=== PATIENT | female | born 1940 | race Caucasian/White ===

== ENCOUNTER → 2016-03-05 | Outpatient (CLI) | payer BC ==
[~2016-03-05] MED LIST: DVN160125 PO; NAPR-201 PO
--- NOTE | 2016-03-05 12:25 | MAMMOGRAPHY REPORT ---
BILATERAL DIGITAL SCREENING MAMMOGRAM WITH CAD: 03/05/2016 TECHNIQUE: Current study was also evaluated with a Computer Aided Detection (CAD) system. Bilatera l CC and MLO views were obtained. COMPARISON: Comparison is made to exams dated: 02/28/2015 mammogram, 12/26/2013 mammogram, 12/11/2010 mammogram, 12/20/2012 mammogram, 12/15/2011 mammogram - [facility], and 07/30/2008. BREAST COMPOSITION: There are scattered areas of fibroglandular density in both breasts. FINDINGS: No suspicious masses, calcifications, or areas of architectural distortion are noted in e ither breast. There has been no significant interval change compared to prior exams. IMPRESSION: ACR BI-RADS CATEGORY 1: NEGATIVE There is no mammographic evidence of malignancy. A 1 year screening mammogram is recommended. The p atient will receive written notification of the results. Approximately 10% of breast cancers are not detected with mammography. A negative mammographic repor t should not delay biopsy if a clinically suggestive mass is present. Aruna He M.D. ah/:03/05/2016 08:32:17 Practice Assistant: Lashell KENDALL(Marlena)(M), [facility] letter sent: Normal 1/2 BI-RADS Code: ACR BI-RADS Category 1: Negative
== END | disposition home or self-care (01) ==
LOC: C.MAMM 07:58
PROVIDERS: ATTEND Family Medicine
DX: Z12.31 Encounter for screening mammogram for malignant neoplasm of breast (principal)

== ENCOUNTER → 2017-03-10 | Outpatient (CLI) | payer BC ==
--- NOTE | 2017-03-10 14:33 | MAMMOGRAPHY REPORT ---
BILATERAL DIGITAL SCREENING MAMMOGRAM TOMOSYNTHESIS WITH CAD: 03/10/2017 CLINICAL HISTORY: Routine screening. Patient has no complaints. TECHNIQUE: Breast tomosynthesis in addition to standard 2D mammography was performed. Current study was also evaluated with a Computer Aided Detection (CAD) system. COMPARISON: Comparison is made to exams dated: 03/05/2016 mammogram, 02/28/2015 mammogram, 12/26/2013 mammogram, 12/20/2012 mammogram, 12/15/2011 mammogram, and 12/11/2010 mammogram - [facility]. BREAST COMPOSITION: There are scattered areas of fibroglandular density in both breasts. FINDINGS: No suspicious masses, calcifications, or areas of architectural distortion are noted in ei ther breast. There has been no significant interval change compared to prior exams. IMPRESSION: ACR BI-RADS CATEGORY 1: NEGATIVE There is no mammographic evidence of malignancy. A 1 year screening mammogram is recommended. The pa tient will receive written notification of the results. Approximately 10% of breast cancers are not detected with mammography. A negative mammographic report should not delay biopsy if a clinically suggestive mass is present. Aruna He M.D. /:03/10/2017 08:05:39 Tank Cooper: Oralia Moy, [facility] letter sent: Normal /2 BI-RADS Code: ACR BI-RADS Category 1: Negative
== END | disposition home or self-care (01) ==
LOC: C.MAMM 07:45
PROVIDERS: ATTEND Family Medicine
DX: Z12.31 Encounter for screening mammogram for malignant neoplasm of breast (principal)

== ENCOUNTER → 2017-09-13 | Outpatient (CLI) | payer BC ==
[~2017-09-13] MED LIST changes: +NAPR1TAB9 PO; +VALS160T60 PO
--- NOTE | 2017-09-13 09:16 | DIAGNOSTIC IMAGING REPORT ---
PA CHEST WITH RIGHT-SIDED RIB SERIES CLINICAL HISTORY: Dyspnea. Right-sided chest wall pain. FINDINGS: A PA chest radiograph with 4 additional views may right-sided rib series is compared to study dated 07/29/2017. The heart is top normal for projection. There is atherosclerotic calcification of the thoracic aorta. The pulmonary vascular structures noncongested. Chronic interstitial thickening is similar to previous. The lungs and pleural spaces are clear. No pneumothorax is seen. The skeletal structures are osteopenic. There is no radiographic evidence of acute/distracted right-sided rib fracture on the rib series. The remainder of the bony thorax is grossly intact. Degenerative change is noted in the thoracic spine. IMPRESSION: 1. The lungs are clear. 2. There is no radiographic evidence of acute/distracted right-sided rib fracture on the rib series. Electronically signed by: Fan Pacheco M.D. 09/13/2017 9:15 AM Dictated Date/Time: 09/13/2017 9:12 AM
== END | disposition home or self-care (01) ==
LOC: C.RAD1850 08:58
PROVIDERS: ATTEND Family Medicine
DX: M54.89 Other dorsalgia (principal)

== ENCOUNTER 2017-09-18 16:55 | Inpatient (IN) | payer BC, OTHER ==
[~2017-09-18] VITALS: Ht 162.6 cm; Wt 64.0 kg
[~2017-09-18 16:55] MED LIST changes: -NAPR1TAB9 PO; -VALS160T60 PO
[2017-09-18] MEDS ORDERED: OPTIRAY 320 IV PRN (17:30)
[2017-09-18] MEDS ORDERED: VALS160T60 PO (17:38)
[2017-09-18] MEDS ORDERED: NAPR1TAB9 PO (17:38)
[2017-09-18 17:57] LABS: BASO % 0.3 %; BASO ABS # 0.02 K/uL (0-0.2); EOS % 1.3 %; EOS ABS # 0.08 K/uL (0-0.5); HEMATOCRIT 41.7 % (37-47); HEMOGLOBIN 15.1 g/dL (12.0-16.0); LYMPH ABS # 1.57 K/uL (1.2-3.4); MEAN CELL VOLUME 87.8 fL (80-100); MEAN CORPUSCULAR HEMOGLOBIN 31.8 pg (25-34); MEAN CORPUSCULAR HGB CONC 36.2 g/dl (32-36); MEAN PLATELET VOLUME 9.2 fL (7.4-10.4); MONO % 11.4 %; MONO ABS # 0.69 K/uL (0.11-0.59); NEUT ABS # 3.67 K/uL (1.4-6.5); PLATELET COUNT 279 K/uL (130-400); RED CELL DISTRIBUTION WIDTH CV 13.3 % (11.5-14.5); RED CELL DISTRIBUTION WIDTH SD 42.6 fL (36.4-46.3); WHITE BLOOD COUNT 6.03 K/uL (4.8-10.8)
[2017-09-18 18:05] LABS: PTT PATIENT 24.6 SECONDS (21.0-31.0)
[2017-09-18 18:25] LABS: ALBUMIN 4.3 gm/dl (3.4-5.0); ALKALINE PHOSPHATASE 81 U/L (45-117); ALT/SGPT 20 U/L (12-78); AST/SGOT 17 U/L (15-37); BLOOD UREA NITROGEN 19 mg/dl (7-18); CALCIUM 9.9 mg/dl (8.5-10.1); CARBON DIOXIDE 25 mmol/L (21-32); GLUCOSE 117 mg/dl (70-99); LIPASE 298 U/L (73-393); POTASSIUM 3.6 mmol/L (3.5-5.1); SODIUM 121 mmol/L (136-145); TOTAL PROTEIN 8.8 gm/dl (6.4-8.2)
--- NOTE | 2017-09-18 19:08 | EMERGENCY ROOM VISIT NOTE ---
History First contact with patient: 17:13 Chief Complaint: SHORTNESS OF BREATH Stated Complaint: SEVERE BACK PAIN, SHORTNESS OF BREATH, SHAKING, History of Present Illness 77 year old female with history of hypertension presents with complaint of upper thoracic back pain on the right side spreading diffusely and now around the entire chest ongoing for approximately 2 weeks. Worse with certain movements and lying down. Does feel somewhat short of breath with this. No cough or fevers reported. No significant trauma. Decreased appetite but denies abdominal pain or diarrhea. Denies urinary symptoms. Endorses weakness and being more tremulous/achy recently. Difficulty sleeping as it is worse laying down. Seen by her primary care physician several times initially thought was musculoskeletal but not improving. Chest x-ray reportedly was normal the outpatient setting. Had return from vacation secondary to this. No significant improvement with Aleve at home. Source of History: patient Onset: 2 weeks ago Position: chest, back (upper) Symptom Intensity: severe Quality: pressure Timing: constant Modifying Factors (Worsening): exertion, breathing Associated Symptoms: + chest pain, + SOB, + weakness, No fevers, No headache , No sorethroat, No neck pain, No vomiting, No abdominal pain, No diarrhea, No urinary symptoms Review of Systems See HPI for pertinent positives and negatives. A total of ten systems were reviewed and were otherwise negative. Social History Smoking Status: Never Smoker Alcohol Use: none Drug Use: none Current/Historical Medications Scheduled Valsartan/Hctz (Diovan Hct 160MG/25MG), 1 TAB PO DAILY Scheduled PRN Naproxen (Aleve), 220 MG PO BID PRN for Pain Physical Exam Vital Signs Date Time Temp Pulse Resp B/P (MAP) Pulse Ox O2 Delivery O2 Flow Rate FiO2 09/18/17 19:37 90 16 172/93 92 Room Air 09/18/17 18:59 88 20 178/97 100 Room Air 09/18/17 18:14 85 09/18/17 18:10 98 Room Air 09/18/17 18:10 98 Room Air 09/18/17 18:10 98 Room Air 09/18/17 18:08 89 168/93 98 Room Air 09/18/17 17:00 36.7 79 19 149/87 97 Room Air Physical Exam GENERAL: Awake, alert, with resting bilateral hand tremor. HENT: Normocephalic, atraumatic. Oropharynx unremarkable. EYES: Normal conjunctiva. Sclera non-icteric. NECK: Supple. No nuchal rigidity. RESPIRATORY: Clear to auscultation. No wheezes. Normal respiratory effort. CARDIAC: Normal rate. Normal rhythm. Extremities warm and well perfused. GI: Soft, non-distended. No tenderness to palpation. No rebound or guarding. No masses. RECTAL: Deferred. MUSCULOSKELETAL: Atraumatic. Chest examination reveals mild diffuse tenderness. There is no CVA tenderness to palpation. LOWER EXTREMITIES: Calves are equal size bilaterally and non-tender. No edema NEURO: Normal sensorium. No sensory or motor deficits noted. No facial droop. SKIN: Warm and dry. No rash or jaundice noted. Medical Decision & Procedures Laboratory Results 09/18/17 17:40 Red Blood Count 4.75, Mean Corpuscular Volume 87.8, Mean Corpuscular Hemoglobin 31.8, Mean Corpuscular Hemoglobin Concent 36.2, Mean Platelet Volume 9.2, Neutrophils (%) (Auto) 61.0, Lymphocytes (%) (Auto) 26.0, Monocytes (%) (Auto) 11.4, Eosinophils (%) (Auto) 1.3, Basophils (%) (Auto) 0.3, Neutrophils # (Auto ) 3.67, Lymphocytes # (Auto) 1.57, Monocytes # (Auto) 0.69, Eosinophils # (Auto ) 0.08, Basophils # (Auto) 0.02 09/18/17 17:40 Test 09/18/17 17:40 09/18/17 19:39 White Blood Count 6.03 K/uL (4.8-10.8) Red Blood Count 4.75 M/uL (4.2-5.4) Hemoglobin 15.1 g/dL (12.0-16.0) Hematocrit 41.7 % (37-47) Mean Corpuscular Volume 87.8 fL (80-100) Mean Corpuscular Hemoglobin 31.8 pg (25-34) Mean Corpuscular Hemoglobin Concent 36.2 g/dl (32-36) Platelet Count 279 K/uL (130-400) Mean Platelet Volume 9.2 fL (7.4-10.4) Neutrophils (%) (Auto) 61.0 % Lymphocytes (%) (Auto) 26.0 % Monocytes (%) (Auto) 11.4 % Eosinophils (%) (Auto) 1.3 % Basophils (%) (Auto) 0.3 % Neutrophils # (Auto) 3.67 K/uL (1.4-6.5) Lymphocytes # (Auto) 1.57 K/uL (1.2-3.4) Monocytes # (Auto) 0.69 K/uL (0.11-0.59) Eosinophils # (Auto) 0.08 K/uL (0-0.5) Basophils # (Auto) 0.02 K/uL (0-0.2) RDW Standard Deviation 42.6 fL (36.4-46.3) RDW Coefficient of Variation 13.3 % (11.5-14.5) Immature Granulocyte % (Auto) 0.0 % Immature Granulocyte # (Auto) 0.00 K/uL (0.00-0.02) Prothrombin Time 10.1 SECONDS (9.0-12.0) Prothromb Time International Ratio 1.0 (0.9-1.1) Activated Partial Thromboplast Time 24.6 SECONDS (21.0-31.0) Partial Thromboplastin Ratio 0.9 Anion Gap 9.0 mmol/L (3-11) Est Creatinine Clear Calc Drug Dose 51.9 ml/min Estimated GFR () 72.5 Estimated GFR (Non- 62.5 BUN/Creatinine Ratio 20.7 (10-20) Osmolality 261 mOsm/kg (280-300) Calcium Level 9.9 mg/dl (8.5-10.1) Total Bilirubin 0.9 mg/dl (0.2-1) Direct Bilirubin 0.2 mg/dl (0-0.2) Aspartate Amino Transf (AST/SGOT) 17 U/L (15-37) Alanine Aminotransferase (ALT/SGPT) 20 U/L (12-78) Alkaline Phosphatase 81 U/L (45-117) Troponin I < 0.015 ng/ml (0-0.045) Pro-B-Type Natriuretic Peptide 294 pg/ml (0-900) Total Protein 8.8 gm/dl (6.4-8.2) Albumin 4.3 gm/dl (3.4-5.0) Lipase 298 U/L (73-393) Thyroid Stimulating Hormone (TSH) 1.700 uIu/ml (0.300-4.500) Urine Color YELLOW Urine Appearance CLEAR (CLEAR) Urine pH 7.5 (4.5-7.5) Urine Specific [place] 1.020 (1.000-1.030) Urine Protein NEG (NEG) Urine Glucose (UA) NEG (NEG) Urine Ketones NEG (NEG) Urine Occult Blood NEG (NEG) Urine Nitrite NEG (NEG) Urine Bilirubin NEG (NEG) Urine Urobilinogen NEG (NEG) Urine Leukocyte Esterase NEG (NEG) Urine Random Sodium 42 mEq/L Medications Administered Medications (Trade) Dose Ordered Sig/Rosa Route Start Time Stop Time Status Last Admin Dose Admin Morphine Sulfate (MoRPHine SULFATE INJ) 4 mg NOW STAT IV 09/18/17 19:51 09/18/17 19:52 DC 09/18/17 20:16 4 MG ECG Per My Interpretation Indication: chest pain Rate (beats per minute): 85 Rhythm: normal sinus Findings: no acute ischemic change, other (Lead III t wave inversion. Normal intervals) Comparison ECG Date: 02/21/2011 Change: no significant change ED Course 1727: The patient was evaluated in room C1B. A complete history and physical exam was performed. 1844: Updated on Labs and sodium level awaiting CTA chest. 1946: Patient and son updated on Ct findings and ?mass. Given pain medicine and water. Hospitalist paged for admission. Medical Decision Differential diagnosis: Etiologies such as cardiac ischemia, aortic dissection, pulmonary embolism, pneumonia, pneumothorax, musculoskeletal, infections, pericarditis, myocarditis , esophageal rupture, gastrointestinal, as well as others were entertained. Presentation concerning for possible PE or dissection or possible mass given chronicity. Less likely cardiac but EKG and troponin were completed. CT of the chest was completed to evaluate for these other possibilities. Basic lab work was completed. Not having fever and no overlying rash I doubt this is acute infection. Doubt pneumonia. No evidence of zoster as is present on both sides of the body. Lungs sound clear no history of reactive airway disease. Negative troponin. Blood counts are stable. Significant hyponatremia likely contributing to her symptoms particularly her mental fogginess. Hyponatremia could be secondary to her BP medicine. CT scan of the chest show no acute pulmonary embolism or mass in the lungs. CT did suboptimally visualize a 1 cm mass in the lateral segment of the liver. This could possibly be causing the patient's pain in a daily dedicated nonemergent liver protocol CT of the abdomen pelvis would be beneficial to further differentiate. Patient and son aware of finding. No evidence of live dysfunction at this time. No evidence of large aortic dissection. Given hyponatremia requires admission for this. Will require further evaluation for intra-abdominal process causing her symptoms and possible oncological process that could be contributing to her hyponatremia versus BP medication related. Hospitalist contacted for admission. Medication Reconcilliation Current Medication List: was personally reviewed by me Blood Pressure Screening Patient's blood pressure: Elevated blood pressure Blood pressure disposition: Referred to PCP Impression Primary Impression: Hyponatremia Additional Impressions: Liver mass, left lobe Chest pain Departure Information Dispostion Being Evaluated By Hospitalist Condition GOOD Referrals Josh Pollard MD (PCP) Patient Instructions My [facility] Problem Qualifiers Additional Impressions: Chest pain Chest pain type: unspecified Qualified Codes: R07.9 - Chest pain, unspecified
--- NOTE | 2017-09-18 19:36 | DIAGNOSTIC IMAGING REPORT ---
CT ANGIOGRAPHY OF THE CHEST, PULMONARY EMBOLUS PROTOCOL CLINICAL HISTORY: Shortness of breath. COMPARISON STUDY: Chest radiograph September 23, 2017. TECHNIQUE: Following IV administration of 89 mL of [id number]-320, helical axial images of the chest were obtained utilizing the pulmonary embolus protocol. Maximal intensity projections and sagittal and coronal reformats were viewed on an independent 3D workstation. IV contrast was administered without complication. A dose lowering technique was utilized adhering to the principles of ALARA. CT DOSE: 219.97 mGy.cm FINDINGS: No pulmonary emboli are identified. There is no evidence for thoracic aortic dissection. The size of the heart is normal. There is no pericardial effusion. No enlarged thoracic lymph nodes are present. There is no consolidation to suggest pneumonia. Central airways are patent. Linear and groundglass opacities reflect atelectasis. Visualized portions of the upper abdomen demonstrate a probable 4.1 cm hypodense lateral segment hepatic lesion. IMPRESSION: 1. No pulmonary emboli identified. 2. No acute intrathoracic findings. 3. Probable 4.1 cm hypodense lateral segment hepatic mass which is suboptimally assessed on this exam. Nonemergent liver protocol CT of the abdomen and pelvis is recommended. Electronically signed by: Aaron Olsen M.D. 09/18/2017 7:35 PM Dictated Date/Time: 09/18/2017 7:23 PM
[2017-09-18] MEDS ORDERED: MoRPHine SULFATE 4 MG/ML 1 ML CARP\\VIAL IV STA (19:51)
[2017-09-18] MEDS ORDERED: LIDODERM (LIDOCAINE) PATCH 5% TD STA (21:45)
--- NOTE | 2017-09-18 22:01 | History and Physical ---
History & Physical Date & Time of Service: Sep 18, 2017 at 21:29 Chief Complaint: Severe Back Pain, Shortness Of Breath, Shaking, Primary Care Physician: Josh Pollard MD History of Present Illness Source: patient, family, hospital records The patient is a 77-year-old female with past medical history of hypertension that presents with a two-week history of worsening back pain. The patient was initially evaluated as an outpatient at [facility] medicine clinic 2 weeks ago and found to have a right sided muscle strain. The patient was initially given a trigger point injection that provided immediate relief, but returned within 24 hours. Afterwards the patient was placed on naproxen 500 mg twice daily although this also provided no further relief. The pain continued to progress and wrap around her chest causing a burning-like sensation. The reason the patient came into the hospital today is because she has been unable to sleep, has been having decreased appetite, and has felt very weak over the last few days. She also states that she has not been drinking an adequate amount of fluid due to her fatigue. Her son at bedside states that she is normally very active although has been limited due to her pain. In the emergency department the patient was also found to be hyponatremic with a sodium of 121. She takes a combo valsartan and hydrochlorothiazide medication and appreciates that she has had a very low fluid intake over the last few days. CTA chest performed in the emergency department also revealed a 4 cm liver mass. Family History Noncontributory Social History Smoking Status: Never Smoker Smokeless Tobacco Use: No Alcohol Use: none Drug Use: none Occupational Status: retired Immunizations History of Influenza Vaccine: Unknown History of Tetanus Vaccine?: Unknown History of Pneumococcal: Unknown History of Hepatitis B Vaccine: Unknown Allergies Coded Allergies: Ibuprofen (Verified Allergy, Unknown, RASH, 02/21/11) Home Medications Scheduled Valsartan/Hctz (Diovan Hct 160MG/25MG), 1 TAB PO DAILY Scheduled PRN Naproxen (Aleve), 220 MG PO BID PRN for Pain Review of Systems Constitutional: + weakness, + fatigue, No fever, No chills, No sweats, No weight loss Respiratory: No cough, No shortness of breath Cardiovascular: + chest pain, No orthopnea, No palpitations Abdomen: No pain, No nausea, No vomiting, No diarrhea, No constipation, No GI bleeding Musculoskeletal: + muscle pain (Right sided back pain), No joint pain, No swelling, No calf pain Neurologic: No paralysis, No numbness/tingling Physical Exam Vital Signs Date Time Temp Pulse Resp B/P (MAP) Pulse Ox O2 Delivery O2 Flow Rate FiO2 09/18/17 21:02 94 26 119/74 97 Room Air 09/18/17 20:30 96 28 130/79 93 Room Air 09/18/17 20:00 92 25 159/92 98 Room Air 09/18/17 19:37 90 16 172/93 92 Room Air 09/18/17 18:59 88 20 178/97 100 Room Air 09/18/17 18:14 85 09/18/17 18:10 98 Room Air 09/18/17 18:10 98 Room Air 09/18/17 18:10 98 Room Air 09/18/17 18:08 89 168/93 98 Room Air 09/18/17 17:00 36.7 79 19 149/87 97 Room Air General Appearance: WD/WN, no apparent distress Head: normocephalic, atraumatic Eyes: normal inspection, sclerae normal Neck: supple, no carotid bruits Respiratory/Chest: chest non-tender, lungs clear, normal breath sounds Cardiovascular: regular rate, rhythm, no edema, no gallop Abdomen/GI: normal bowel sounds, non tender, soft Extremities/Musculoskelatal: normal inspection, no calf tenderness, no pedal edema, + pertinent finding (TTP over right trapezoid/ infrascapular region. Strength in UE 5/5. No visible sensory deficit. Mild tenderness with palpation over the anterior chest wall, athough this is diffuse with no acute point tenderness) Neurologic/Psych: no motor/sensory deficits, alert, oriented x 3 Diagnostics Laboratory Results Results Past 24 Hours Test 09/18/17 17:40 09/18/17 19:39 Range/Units White Blood Count 6.03 4.8-10.8 K/uL Red Blood Count 4.75 4.2-5.4 M/uL Hemoglobin 15.1 12.0-16.0 g/dL Hematocrit 41.7 37-47 % Mean Corpuscular Volume 87.8 80-100 fL Mean Corpuscular Hemoglobin 31.8 25-34 pg Mean Corpuscular Hemoglobin Concent 36.2 32-36 g/dl Platelet Count 279 130-400 K/uL Mean Platelet Volume 9.2 7.4-10.4 fL Neutrophils (%) (Auto) 61.0 % Lymphocytes (%) (Auto) 26.0 % Monocytes (%) (Auto) 11.4 % Eosinophils (%) (Auto) 1.3 % Basophils (%) (Auto) 0.3 % Neutrophils # (Auto) 3.67 1.4-6.5 K/uL Lymphocytes # (Auto) 1.57 1.2-3.4 K/uL Monocytes # (Auto) 0.69 0.11-0.59 K/uL Eosinophils # (Auto) 0.08 0-0.5 K/uL Basophils # (Auto) 0.02 0-0.2 K/uL RDW Standard Deviation 42.6 36.4-46.3 fL RDW Coefficient of Variation 13.3 11.5-14.5 % Immature Granulocyte % (Auto) 0.0 % Immature Granulocyte # (Auto) 0.00 0.00-0.02 K/uL Prothrombin Time 10.1 9.0-12.0 SECONDS Prothromb Time International Ratio 1.0 0.9-1.1 Activated Partial Thromboplast Time 24.6 21.0-31.0 SECONDS Partial Thromboplastin Ratio 0.9 Sodium Level 121 136-145 mmol/L Potassium Level 3.6 3.5-5.1 mmol/L Chloride Level 87 98-107 mmol/L Carbon Dioxide Level 25 21-32 mmol/L Anion Gap 9.0 3-11 mmol/L Blood Urea Nitrogen 19 7-18 mg/dl Creatinine 0.90 0.60-1.20 mg/dl Est Creatinine Clear Calc Drug Dose 51.9 ml/min Estimated GFR () 72.5 Estimated GFR (Non- 62.5 BUN/Creatinine Ratio 20.7 10-20 Random Glucose 117 70-99 mg/dl Osmolality 261 280-300 mOsm/kg Calcium Level 9.9 8.5-10.1 mg/dl Total Bilirubin 0.9 0.2-1 mg/dl Direct Bilirubin 0.2 0-0.2 mg/dl Aspartate Amino Transf (AST/SGOT) 17 15-37 U/L Alanine Aminotransferase (ALT/SGPT) 20 12-78 U/L Alkaline Phosphatase 81 45-117 U/L Troponin I < 0.015 0-0.045 ng/ml Pro-B-Type Natriuretic Peptide 294 0-900 pg/ml Total Protein 8.8 6.4-8.2 gm/dl Albumin 4.3 3.4-5.0 gm/dl Lipase 298 73-393 U/L Thyroid Stimulating Hormone (TSH) 1.700 0.300-4.500 uIu/ml Urine Color YELLOW Urine Appearance CLEAR CLEAR Urine pH 7.5 4.5-7.5 Urine Specific [place] 1.020 1.000-1.030 Urine Protein NEG NEG Urine Glucose (UA) NEG NEG Urine Ketones NEG NEG Urine Occult Blood NEG NEG Urine Nitrite NEG NEG Urine Bilirubin NEG NEG Urine Urobilinogen NEG NEG Urine Leukocyte Esterase NEG NEG Urine Random Sodium 42 mEq/L Impression Assessment and Plan The patient is a 77-year-old female with past medical history of hypertension that presents with a two-week history of worsening back pain. Patient subsequently found to have Hyponatremia with Sodium of 121 along with uncontrolled pain (chest/back) and therefore agreed to admit patient. Additional incidental finding of liver mass on imaging. Hyponatremia - Sodium of 121 on BMP - Holding home HCTZ/ Valsartan - Serum Osm 261, Urine Osm Ordered - IV NSS @ 100 mls/hr - AHA Diet - Repeat BMP in AM Back Strain/ Chest Pain - Lidocaine Patch - IV Toradol for breakthrough pain - Troponin < 0.015 - CTA Chest show no acute cardiopulmonary findings Liver Mass - CTA Chest: 4cm Liver Mass - MRI Abdomen with contrast ordered Hypertension - Holding home Valsartan/ HCTZ - Cardizem 30mg PO q6h DVT - SCDs Code Status - Full Resuscitation Attending addendum: I have physically seen this patient, have supervised the medical residents activities, and agree with the H&P unless as otherwise noted. Assessment and Plan: Hyponatremia-- Sodium 131, serum [place] 261, urinalysis and pending. Hold HCTZ/valsartan. NSS at 100 mils per hour. Repeat laboratories in a.m. Hypertension-- Hold HCTZ/valsartan as noted above. Start Cardizem 30 mg p.o. every 6 hours, with conversion to Cardizem CD in a.m. She can discuss further with her PCP maintenance medication of their choice. Liver mass 4.1 cm lateral segment-- Unable to do CT with contrast to the previous contrast already given. Order MRI abdomen with contrast. Further medications and orders as noted above. Advanced Directives Existing Advance Directive: No Existing Living Will: No Existing Power of Hydraulic Rockbreaker Operator: No Resuscitation Status Full Resuscitation VTE Prophylaxis Will order VTE Prophylaxis: Yes Social Service Consult None Apply Resident Tracking Resident Involvement: Resident Care Provided Care Provided: Adult Hospital Medicine
[2017-09-19] VITALS (9 sets, daily range): BP systolic 129–186; BP diastolic 73–98; PULSE 85–98; TEMP 36.3–37.2; O2SAT 95–99; Ht 162.6 cm; Wt 64.0 kg
[2017-09-19] MEDS: SODIUM CHLORIDE 0.9% 1000ML 1,000 ML IV SCH ×3 (01:35→21:10)
[2017-09-19] MEDS: KETOROLAC TROMETHAMINE 15 MG/ML VIAL IV PRN ×2 (03:23→17:06)
[2017-09-19] MEDS ORDERED: PNEUMOCOCCAL ADMINISTRATION CHARGE ONE (03:30)
[2017-09-19] MEDS ORDERED: PNEUMOCOCCAL POLYSACCHARIDES 25 MCG/0.5 ML VIAL/SYR IM. ONE (03:30)
[2017-09-19] MEDS: DILTIAZEM HCL 30 MG TAB PO SCH ×4 (05:52→17:12)
[2017-09-19] MEDS: ACETAMINOPHEN 325 MG TAB PO PRN (05:59)
[2017-09-19] MEDS: ONDANSETRON INJ 2 MG/ML 2 ML VIAL IV PRN ×2 (06:24→21:41)
[2017-09-19] MEDS: HydrALAZINE HCL 20 MG/ML VIAL IV. PRN (06:25)
--- NOTE | 2017-09-19 07:06 | Family Medicine Progress Note ---
Progress Note Date of Service Sep 19, 2017. Subjective Pt evaluation today including: conversation w/ patient, physical exam, chart review, review of inpatient medication list Pain: 9/10 back pain reported PO Intake: Poor PO intake Voiding: no voiding problems Ms. Gomez reports she remains with severe back pain that radiates around to the front of her abdomen. She states the pain is constant and does not improve with change in position. She reports that the morphine did help slightly however she is reluctant to take narcotics. She denies any history of falls or trauma to the area, but believes this may have started when she carlee her arm back forcefully to start her lawnmower. She also notes a poor appetite over the past 2 weeks due to the pain and states that she has lost 12 pounds over the last 2 weeks. She also notes she has not had a bowel movement in 10 days. Constitutional: + weight loss, No fever, No chills Respiratory: No cough, No shortness of breath Cardiovascular: No chest pain Abdomen: + pain, + constipation, No nausea, No vomiting Musculoskeletal: + problem reported (upper back pain) All Other Systems: Reviewed and Negative Medications Current Inpatient Medications Medications (Trade) Dose Ordered Sig/Rosa Route Start Time Stop Time Status Last Admin Dose Admin Ioversol (Optiray 320) 100 ml UD PRN IV 09/18/17 17:30 09/22/17 17:29 Sodium Chloride 1,000 ml @ 100 mls/hr Q10H IV 09/18/17 23:59 10/18/17 23:58 09/19/17 09:28 100 MLS/HR Acetaminophen (Tylenol Tab) 650 mg Q4H PRN PO 09/18/17 21:45 10/18/17 21:44 09/19/17 05:59 650 MG Ondansetron HCl (Zofran Inj) 4 mg Q6H PRN IV 09/18/17 21:45 10/18/17 21:44 09/19/17 06:24 4 MG Diltiazem HCl (Cardizem Tab) 30 mg Q6H PO 09/19/17 00:00 10/19/17 00:00 09/19/17 11:34 30 MG Ketorolac Tromethamine (Toradol Inj) 15 mg Q6H PRN IV 09/18/17 21:45 09/23/17 21:44 09/19/17 03:23 15 MG Lidocaine (Lidoderm Patch 5%) 1 patch QAM TD 09/19/17 09:00 10/19/17 08:59 09/19/17 09:27 1 PATCH Miscellaneous (Remove Lidoderm Patch) 1 ea DAILY@21 N/A 09/19/17 21:00 10/19/17 20:59 Hydralazine HCl (HydrALAZINE INJ) 10 mg Q6H PRN IV. 09/19/17 06:15 10/19/17 06:14 09/19/17 06:25 10 MG Docusate Sodium (coLACE CAP) 100 mg BID PO 09/19/17 21:00 10/19/17 20:59 Objective Vital Signs Date Time Temp Pulse Resp B/P (MAP) Pulse Ox O2 Delivery O2 Flow Rate FiO2 09/19/17 11:31 36.4 98 18 129/73 (91) 99 09/19/17 08:00 98 Room Air 09/19/17 07:23 36.3 96 20 144/79 (100) 97 Room Air 09/19/17 06:04 36.8 85 20 186/98 (127) 99 Room Air 09/19/17 00:20 37.2 86 18 135/85 97 Room Air 09/18/17 23:09 87 130/80 97 09/18/17 22:57 85 24 09/18/17 22:00 90 21 106/74 97 Room Air 09/18/17 21:02 94 26 119/74 97 Room Air 09/18/17 20:30 96 28 130/79 93 Room Air 09/18/17 20:00 92 25 159/92 98 Room Air 09/18/17 19:37 90 16 172/93 92 Room Air 09/18/17 18:59 88 20 178/97 100 Room Air 09/18/17 18:14 85 09/18/17 18:10 98 Room Air 09/18/17 18:10 98 Room Air 09/18/17 18:10 98 Room Air 09/18/17 18:08 89 168/93 98 Room Air 09/18/17 17:00 36.7 79 19 149/87 97 Room Air Physical Exam General Appearance: WD/WN, + mild distress (appears uncomfortable) Respiratory/Chest: lungs clear, normal breath sounds, no respiratory distress, no accessory muscle use Cardiovascular: regular rate, rhythm, no edema, no gallop, no JVD, no murmur Abdomen: soft, + tenderness (mildly tender, no guarding or rigidity), + pertinent finding (point tenderness over thoracic vertebrae. No tenderness along scapula) Extremities: no pedal edema, no calf tenderness Neurologic/Psychiatric: alert, normal mood/affect, oriented x 3 Laboratory Results Last 24 Hours Test 09/18/17 17:40 09/18/17 19:39 09/19/17 05:43 White Blood Count 6.03 K/uL Red Blood Count 4.75 M/uL Hemoglobin 15.1 g/dL Hematocrit 41.7 % Mean Corpuscular Volume 87.8 fL Mean Corpuscular Hemoglobin 31.8 pg Mean Corpuscular Hemoglobin Concent 36.2 g/dl Platelet Count 279 K/uL Mean Platelet Volume 9.2 fL Neutrophils (%) (Auto) 61.0 % Lymphocytes (%) (Auto) 26.0 % Monocytes (%) (Auto) 11.4 % Eosinophils (%) (Auto) 1.3 % Basophils (%) (Auto) 0.3 % Neutrophils # (Auto) 3.67 K/uL Lymphocytes # (Auto) 1.57 K/uL Monocytes # (Auto) 0.69 K/uL Eosinophils # (Auto) 0.08 K/uL Basophils # (Auto) 0.02 K/uL RDW Standard Deviation 42.6 fL RDW Coefficient of Variation 13.3 % Immature Granulocyte % (Auto) 0.0 % Immature Granulocyte # (Auto) 0.00 K/uL Prothrombin Time 10.1 SECONDS Prothromb Time International Ratio 1.0 Activated Partial Thromboplast Time 24.6 SECONDS Partial Thromboplastin Ratio 0.9 Sodium Level 121 mmol/L 125 mmol/L Potassium Level 3.6 mmol/L 3.7 mmol/L Chloride Level 87 mmol/L 90 mmol/L Carbon Dioxide Level 25 mmol/L 26 mmol/L Anion Gap 9.0 mmol/L 9.0 mmol/L Blood Urea Nitrogen 19 mg/dl 15 mg/dl Creatinine 0.90 mg/dl 0.81 mg/dl Est Creatinine Clear Calc Drug Dose 51.9 ml/min 56.6 ml/min Estimated GFR () 72.5 82.3 Estimated GFR (Non- 62.5 71.0 BUN/Creatinine Ratio 20.7 18.5 Random Glucose 117 mg/dl 107 mg/dl Osmolality 261 mOsm/kg Calcium Level 9.9 mg/dl 9.6 mg/dl Total Bilirubin 0.9 mg/dl Direct Bilirubin 0.2 mg/dl Aspartate Amino Transf (AST/SGOT) 17 U/L Alanine Aminotransferase (ALT/SGPT) 20 U/L Alkaline Phosphatase 81 U/L Troponin I < 0.015 ng/ml Pro-B-Type Natriuretic Peptide 294 pg/ml Total Protein 8.8 gm/dl Albumin 4.3 gm/dl Lipase 298 U/L Thyroid Stimulating Hormone (TSH) 1.700 uIu/ml Urine Color YELLOW Urine Appearance CLEAR Urine pH 7.5 Urine Specific [place] 1.020 Urine Protein NEG Urine Glucose (UA) NEG Urine Ketones NEG Urine Occult Blood NEG Urine Nitrite NEG Urine Bilirubin NEG Urine Urobilinogen NEG Urine Leukocyte Esterase NEG Urine Random Sodium 42 mEq/L Assessment and Plan Ms. Gomez is a 77-year-old female with past medical history of hypertension that presents with a two-week history of worsening back pain. Patient subsequently found to have hyponatremia with a sodium of 121 along with uncontrolled back pain. Additional incidental finding of liver mass on imaging. Hyponatremia - Sodium of 121 on admission, improved to 125 today - likely due to poor PO intake over the past 2 weeks - Holding home HCTZ/ Valsartan until sodium improves - Serum Osm 261, Awaiting Urine Osm - continue IV NSS @ 100 mls/hr - Follow BMP Back Pain - point tenderness is concerning for a compression fracture, however thoracic x- ray was negative for compression fracture or subluxation - x-ray did note degenerative changes in her thoracic spine as well as vacuum discs which could be contributing to her pain - Lidocaine Patch and IV toradol ordered - pt reported this was not controlling her pain adequately -> trial of 25mg of Tramadol yielded good response. Will continue this on a q4h prn basis - Troponin < 0.015 - CTA Chest show no acute cardiopulmonary findings Constipation - colace 100mg BID started - likely secondary to poor PO intake Liver Mass - MRI abdomen revealed a benign hemangioma -> discussed w/patient Hypertension - Holding home Valsartan/ HCTZ - Cardizem 30mg PO q6h and 10mg hydralazine q6h prn DVT - SCDs, start lovenox 40mg SQ QPM Code Status - Full Resuscitation Disposition - pending improvement in sodium levels & pain control Resident Physician Supervision Note: I was present with the resident during the history and exam. I discussed the case with the resident and agree with the findings and plan as documented in the note. Any exceptions or clarifications are listed here: Upon my exam, point tenderness midline in the mid to low thoracic region. Agree with thoracic XR to R/O compression fracture. Suspect hyponatremia secondary to decrease PO intake secondary to pain. Continue hydration and pain control. Trend BMP. Documented By: Thomas Acosta Resident Tracking Resident Involvement: Resident Care Provided Care Provided: Adult Hospital Medicine
[2017-09-19 07:07] LABS: CALCIUM 9.6 mg/dl (8.5-10.1); CREATININE 0.81 mg/dl (0.60-1.20); POTASSIUM 3.7 mmol/L (3.5-5.1)
--- NOTE | 2017-09-19 08:18 | DIAGNOSTIC IMAGING REPORT ---
MRI OF THE ABDOMEN COMBO CLINICAL HISTORY: Follow-up liver mass.. COMPARISON STUDY: Chest CT dated 09/18/2017. TECHNIQUE: MRI of the abdomen is performed transverse T1 and T2-weighted sequences in the axial and coronal planes. Contrast enhanced sequences were acquired following the IV administration of 10 cc of Eovist. Diffusion-weighted imaging and subtraction imaging were performed. High resolution coronal MRCP imaging was performed. 3-D reformats were created and assessed. FINDINGS: Lower chest: No pleural effusion is identified. The heart is normal in size. Liver: The liver is normal in size, contour, and signal intensity. No intrahepatic biliary ductal dilatation is seen. The hepatic veins and portal veins are patent. There is a 2.4 x 3.6 cm T2 hyperintense lesion identified in the left hepatic lobe. This demonstrates foci of peripheral discontinuous nodular enhancement with gradual delayed fill-in. This does not retain Eovist on the extended delays and is consistent with a benign hemangioma. A 9 mm cyst is present in hepatic segment VIII. Gallbladder/MRCP: The gallbladder is normal in appearance. No gallstones are identified. There is no intra or extrahepatic biliary ductal dilatation. The common bile duct measures up to 4 mm. There are no filling defects to indicate choledocholithiasis. The pancreatic duct is normal in caliber. Spleen: Normal in size and signal intensity. Pancreas: Unremarkable. Adrenal glands: Unremarkable. Kidneys: The kidneys are normal in size and without hydronephrosis. The kidneys enhance and excrete symmetrically. Abdominal aorta: Normal in course and caliber. Bowel: Visualized portions of the small bowel and colon show no evidence of obstruction. Peritoneum: There is no abdominal ascites. Lymphadenopathy: None. Skeletal structures: Visualized skeletal structures times are normal marrow signal intensity. IMPRESSION: 1. The 3.6 cm lesion in the left hepatic lobe is consistent with a benign hemangioma. 2. An additional 9 mm cyst is noted in the right lobe. 3. Unremarkable MRCP. No gallstones are identified. Electronically signed by: Fan Pacheco M.D. 09/19/2017 8:17 AM Dictated Date/Time: 09/19/2017 8:08 AM
[2017-09-19] MEDS: LIDODERM (LIDOCAINE) PATCH 5% TD SCH (09:27)
[2017-09-19] MEDS ORDERED: TRAMADOL HCL 50 MG TAB PO STA (11:22)
--- NOTE | 2017-09-19 13:57 | DIAGNOSTIC IMAGING REPORT ---
THORACIC SPINE 3 VIEWS ROUTINE HISTORY: Trauma. Pain. r/o compression fracture COMPARISON: None. FINDINGS: There is no fracture. No subluxation. Considerable degenerative disc change throughout. Vacuum disc are identified throughout the mid to lower thoracic region. No evidence for compression deformity. No evidence for subluxation. IMPRESSION: Degenerative change. No acute process. The above report was generated using voice recognition software. It may contain grammatical, syntax or spelling errors. Electronically signed by: He Leigh M.D. 09/19/2017 1:56 PM Dictated Date/Time: 09/19/2017 1:55 PM
[2017-09-19] MEDS: ENOXAPARIN 40 MG/0.4 ML SYR SQ SCH (21:07)
[2017-09-19] MEDS: DOCUSATE SODIUM 100 MG CAP PO SCH (21:09)
[2017-09-19] MEDS: TRAMADOL HCL 50 MG TAB PO PRN (21:13)
[2017-09-19] MEDS: MAGNESIUM HYDROXIDE SUSP 30 ML UDC PO PRN (21:41)
[2017-09-20] VITALS (9 sets, daily range): BP systolic 123–186; BP diastolic 68–101; PULSE 63–97; TEMP 36.4–37; O2SAT 95–98
[2017-09-20] MEDS: DILTIAZEM HCL 30 MG TAB PO SCH ×2 (00:38→06:21)
[2017-09-20] MEDS: HydrALAZINE HCL 20 MG/ML VIAL IV. PRN (00:38)
[2017-09-20] MEDS: TRAMADOL HCL 50 MG TAB PO PRN ×5 (01:36→21:42)
[2017-09-20] MEDS: SODIUM CHLORIDE 0.9% 1000ML 1,000 ML IV SCH ×2 (04:26→14:02)
[2017-09-20 06:36] LABS: CALCIUM 9.1 mg/dl (8.5-10.1); CREATININE 0.7 mg/dl (0.60-1.20)
[2017-09-20] MEDS: LIDODERM (LIDOCAINE) PATCH 5% TD SCH (07:59)
[2017-09-20] MEDS: DOCUSATE SODIUM 100 MG CAP PO SCH ×2 (08:45→20:48)
[2017-09-20] MEDS ORDERED: ENOXAPARIN 40 MG/0.4 ML SYR SQ SCH (09:00)
[2017-09-20] MEDS ORDERED: VALSARTAN 80 MG TAB PO ONE (10:28)
--- NOTE | 2017-09-20 10:30 | Family Medicine Progress Note ---
Progress Note Date of Service Sep 20, 2017. Subjective Pt evaluation today including: conversation w/ patient, physical exam, chart review, lab review, review of inpatient medication list Pain: 2/10 back pain reported PO Intake: Decreased PO intake Voiding: no voiding problems Ms. Gomez reports an improvement in her back pain. She states it is a 2/10 in severity now, compared to 8-9/10 yesterday. She reports her appetite is still decreased, and that she feels full just after one bite. She states she had her last colonoscopy about 5 years ago and is due for one this fall. She states they did remove a few polyps last time, and that she is on a 5 year schedule. Constitutional: No fever, No chills Respiratory: No shortness of breath Cardiovascular: No chest pain Abdomen: No nausea, No vomiting, No diarrhea Musculoskeletal: + problem reported (back pain) All Other Systems: Reviewed and Negative Medications Current Inpatient Medications Medications (Trade) Dose Ordered Sig/Rosa Route Start Time Stop Time Status Last Admin Dose Admin Ioversol (Optiray 320) 100 ml UD PRN IV 09/18/17 17:30 09/22/17 17:29 Sodium Chloride 1,000 ml @ 100 mls/hr Q10H IV 09/18/17 23:59 10/18/17 23:58 09/20/17 04:26 100 MLS/HR Acetaminophen (Tylenol Tab) 650 mg Q4H PRN PO 09/18/17 21:45 10/18/17 21:44 09/19/17 05:59 650 MG Ondansetron HCl (Zofran Inj) 4 mg Q6H PRN IV 09/18/17 21:45 10/18/17 21:44 09/19/17 21:41 4 MG Ketorolac Tromethamine (Toradol Inj) 15 mg Q6H PRN IV 09/18/17 21:45 09/23/17 21:44 09/19/17 17:06 15 MG Lidocaine (Lidoderm Patch 5%) 1 patch QAM TD 09/19/17 09:00 10/19/17 08:59 09/20/17 07:59 1 PATCH Miscellaneous (Remove Lidoderm Patch) 1 ea DAILY@21 N/A 09/19/17 21:00 10/19/17 20:59 09/19/17 21:09 1 EA Hydralazine HCl (HydrALAZINE INJ) 10 mg Q6H PRN IV. 09/19/17 06:15 10/19/17 06:14 09/20/17 00:38 10 MG Docusate Sodium (coLACE CAP) 100 mg BID PO 09/19/17 21:00 10/19/17 20:59 09/20/17 08:45 100 MG Tramadol HCl (Ultram Tab) 25 mg Q4H PRN PO 09/19/17 17:30 10/19/17 17:29 09/20/17 08:02 25 MG Enoxaparin Sodium (Lovenox Inj) 40 mg QPM SQ 09/19/17 21:00 10/20/17 08:59 09/19/17 21:07 40 MG Magnesium Hydroxide (Milk Of Magnesia Susp) 30 ml Q6H PRN PO 09/19/17 21:30 10/19/17 21:29 09/19/17 21:41 30 ML Valsartan (Diovan Tab) 160 mg QAM PO 09/21/17 09:00 10/21/17 08:59 Objective Vital Signs Date Time Temp Pulse Resp B/P (MAP) Pulse Ox O2 Delivery O2 Flow Rate FiO2 09/20/17 08:00 98 Room Air 09/20/17 07:07 36.4 97 20 139/72 (94) 98 Room Air 09/20/17 04:35 37.0 94 20 146/75 (98) 98 Room Air 09/20/17 00:05 98 Room Air 09/20/17 00:05 85 186/68 (107) 09/19/17 23:45 36.8 95 20 168/91 (116) 96 Room Air 09/19/17 19:13 36.3 85 20 155/92 (113) 95 Room Air 09/19/17 16:00 98 Room Air 09/19/17 14:56 36.8 85 16 163/79 (107) 98 09/19/17 11:31 36.4 98 18 129/73 (91) 99 Room Air Physical Exam General Appearance: WD/WN, no apparent distress Respiratory/Chest: lungs clear, normal breath sounds, + pertinent finding ( midline upper to mid thoracic point tenderness) Cardiovascular: regular rate, rhythm, no edema, no murmur Abdomen: non tender, soft Extremities: no calf tenderness Neurologic/Psychiatric: alert, normal mood/affect, oriented x 3 Laboratory Results Last 24 Hours Test 09/20/17 05:36 09/20/17 06:41 Sodium Level 126 mmol/L Potassium Level mmol/L 3.8 mmol/L Chloride Level 95 mmol/L Carbon Dioxide Level 22 mmol/L Anion Gap 9.0 mmol/L Blood Urea Nitrogen 12 mg/dl Creatinine 0.70 mg/dl Est Creatinine Clear Calc Drug Dose 66.0 ml/min Estimated GFR () 98.2 Estimated GFR (Non- 84.8 BUN/Creatinine Ratio 16.8 Random Glucose 114 mg/dl Calcium Level 9.1 mg/dl Assessment and Plan Ms. Gomez is a 77-year-old female with past medical history of hypertension that presents with a two-week history of worsening back pain. Patient subsequently found to have hyponatremia with a sodium of 121 along with uncontrolled back pain. Additional incidental finding of liver mass on imaging. Hyponatremia - Sodium of 121 on admission, improved to 126 today - likely due to poor PO intake over the past 2 weeks - Holding home HCTZ until sodium improves - Serum Osm 261, Urine osmolarity 526 -> consistent with hypovolemic hyponatremia - continue IV NSS @ 100 mls/hr - Follow BMP Back Pain - thoracic x-ray was negative for compression fracture or subluxation - x-ray did note degenerative changes in her thoracic spine as well as vacuum discs which could be contributing to her pain - Lidocaine Patch, IV toradol and 25mg of Tramadol q4h ordered. Pt reports tramadol has the best result. - concerning for possible esophageal/stomach malignancy given weight loss, early satiety and hyponatremia. Will consult GI for recommendations. May require EGD. - CTA Chest show no acute cardiopulmonary findings Constipation - colace 100mg BID and milk of mag Liver Mass - MRI abdomen revealed a benign hemangioma -> discussed w/patient Hypertension - Holding home HCTZ - restart valsartan and home dose and d/c cardizem - monitor BP - 10mg hydralazine q6h prn in case of elevations DVT - SCDs, lovenox 40mg SQ QPM Code Status - Full Resuscitation Disposition - pending improvement in sodium levels as well as further investigation in her symptoms Resident Physician Supervision Note: I was present with the resident physician during the history and exam. I discussed the case with the resident and agree with the findings and plan as documented in the note. Any exceptions or clarifications are listed here: Her back pain is improved with the addition of tramadol. However her decreased appetite and early satiety continues. The patient has approximately 10-15 pound weight loss over the past several weeks; this is unintentional and she states that she gets full after only a few bites of food. Is not clear if these symptoms coincided with the onset of her back pain, more in the least which came first. Agree with GI consultation based on the decreased appetite, early satiety, and weight loss. Continue gentle IV fluids for her hyponatremia. Continue Ultram for her back pain. Documented By: Thomas Acosta Resident Tracking Resident Involvement: Resident Care Provided Care Provided: Adult Hospital Medicine
--- NOTE | 2017-09-20 12:30 | Gastrointestinal Consultation ---
Gastrointestinal Consultation Date of Consultation: Sep 20, 2017 Attending Physician: Dr Thomas Acosta History of Present Illness cc back and chest pain, early satiety HPI Pt states about two weeks ago starting lawnmower jerked on cord and it stopped short with some pain in left shoulder blader thereafter. Pain traveled around chest and became uncomfortable such she could not sleep. She had associated early satiety and eating and drinking minimally. No bms but not eating. She does not feell constipated. No dysphagia. No GERD. Lost about 12 lbs over 2 weeks. Chest CTA neg for PE but showed liver lesion. MRI/MRCP liver lesion is 3.6 cm hemangioma, liver cyst noted. MRCP negative and no gallstones seen. Thoracic spine xray DJD. Her pain in back and chest has improved but early satiety has not. She has some nausea but no vomiting. She was noted to be hyponatremic on admit. CBC and LFTS and lipase normal. Reviewed [facility] chart and noted colonoscopy 11/2012 for personal hx of polyps and fhx CRC which showed only diverticulosis at that time with recommendations for 5 year repeat exam. Past Medical/Surgical History Medical Problems: (1) Chest pain Status: Acute (2) Hyponatremia Status: Acute (3) Liver mass, left lobe Status: Acute Social History Smoking Status: Never Smoker Alcohol Use: none Drug Use: none Occupation Status: retired Allergies Coded Allergies: Ibuprofen (Verified Allergy, Unknown, RASH, 02/21/11) Current Medications Home Meds and Scripts Medications Dose Route/Sig Max Daily Dose Days Date Category Diovan Hct 160MG/25MG (HCTZ/Valsartan) 1 Tab Tab 1 Tab PO DAILY 09/18/17 Reported Aleve (Naproxen) 220 Mg Tab 220 Mg PO BID PRN 09/18/17 Reported Review of Systems see HPI. Otherwise 10 ROS neg Physical Exam Date Time Temp Pulse Resp B/P (MAP) Pulse Ox O2 Delivery O2 Flow Rate FiO2 09/20/17 11:36 36.8 92 18 123/80 (94) 98 Room Air 09/20/17 08:00 98 Room Air 09/20/17 07:07 36.4 97 20 139/72 (94) 98 Room Air 09/20/17 04:35 37.0 94 20 146/75 (98) 98 Room Air 09/20/17 00:05 98 Room Air 09/20/17 00:05 85 186/68 (107) 09/19/17 23:45 36.8 95 20 168/91 (116) 96 Room Air 09/19/17 19:13 36.3 85 20 155/92 (113) 95 Room Air 09/19/17 16:00 98 Room Air 09/19/17 14:56 36.8 85 16 163/79 (107) 98 General Appearance: WD/WN, no apparent distress Eyes: normal inspection, PERRL ENT: hearing grossly normal, pharynx normal Neck: supple, trachea midline Respiratory/Chest: lungs clear, no respiratory distress Cardiovascular: regular rate, rhythm, no edema Abdomen: normal bowel sounds, non tender, soft, no organomegaly Extremities: normal inspection Neurologic/Psych: blacktop spreader II-XII nml as tested, normal mood/affect, oriented x 3 Skin: normal color, warm/dry Laboratory Results Last 24 Hours Test 09/20/17 05:36 09/20/17 06:41 Sodium Level 126 mmol/L Potassium Level mmol/L 3.8 mmol/L Chloride Level 95 mmol/L Carbon Dioxide Level 22 mmol/L Anion Gap 9.0 mmol/L Blood Urea Nitrogen 12 mg/dl Creatinine 0.70 mg/dl Est Creatinine Clear Calc Drug Dose 66.0 ml/min Estimated GFR () 98.2 Estimated GFR (Non- 84.8 BUN/Creatinine Ratio 16.8 Random Glucose 114 mg/dl Calcium Level 9.1 mg/dl Impression atypical chest pain--abrupt onset odd for esophageal process but possible. Discussed doing EGD tomorrow to assess. She agrees. Procedure and risks explained to patient which include but not limited to med reaction bleeding, perforation, aspiration, and missed lesions. If EGD negative then suspect neuropathic or musculoskeletal process. early satiety--could be from lack of eating with other pain but could indicate gastric process--EGD as above nausea--? GI process--EGD as above change in bms--no stools but not eating. She is due for colonscopy 11/2017 but if this is ongoing then recommend this be moved up as outpt. hx colon polyps--as above
[2017-09-20] MEDS: KETOROLAC TROMETHAMINE 15 MG/ML VIAL IV PRN (15:45)
[2017-09-20] MEDS: POLYETHYLENE (MIRALAX) 17 GM PACK PO SCH (18:12)
[2017-09-21] VITALS (9 sets, daily range): BP systolic 144–184; BP diastolic 84–108; PULSE 82–93; TEMP 36.4–37.1; O2SAT 94–99
[2017-09-21] MEDS: SODIUM CHLORIDE 0.9% 1000ML 1,000 ML IV SCH ×3 (00:14→20:43)
[2017-09-21 07:04] LABS: BASO % 0.2 %; BASO ABS # 0.01 K/uL (0-0.2); EOS % 0.3 %; EOS ABS # 0.02 K/uL (0-0.5); HEMATOCRIT 40.4 % (37-47); HEMOGLOBIN 14.3 g/dL (12.0-16.0); IG# 0.01 K/uL (0.00-0.02); LYMPH % 16.4 %; LYMPH ABS # 1.08 K/uL (1.2-3.4); MEAN CORPUSCULAR HEMOGLOBIN 31.2 pg (25-34); MEAN CORPUSCULAR HGB CONC 35.4 g/dl (32-36); MEAN PLATELET VOLUME 9.1 fL (7.4-10.4); MONO % 9.3 %; MONO ABS # 0.61 K/uL (0.11-0.59); NEUT % 73.6 %; NEUT ABS # 4.84 K/uL (1.4-6.5); PLATELET COUNT 274 K/uL (130-400); RED CELL DISTRIBUTION WIDTH CV 13.5 % (11.5-14.5); RED CELL DISTRIBUTION WIDTH SD 43.4 fL (36.4-46.3); WHITE BLOOD COUNT 6.57 K/uL (4.8-10.8)
[2017-09-21 07:39] LABS: ALBUMIN 3.8 gm/dl (3.4-5.0); CALCIUM 9.3 mg/dl (8.5-10.1); CREATININE 0.63 mg/dl (0.60-1.20); POTASSIUM 3.6 mmol/L (3.5-5.1); TOTAL PROTEIN 7.9 gm/dl (6.4-8.2)
[2017-09-21] MEDS: TRAMADOL HCL 50 MG TAB PO PRN ×2 (07:55→19:15)
[2017-09-21] MEDS: DOCUSATE SODIUM 100 MG CAP PO SCH ×2 (07:55→20:31)
[2017-09-21] MEDS: LIDODERM (LIDOCAINE) PATCH 5% TD SCH (07:59)
--- NOTE | 2017-09-21 08:52 | Family Medicine Progress Note ---
Progress Note Date of Service Sep 21, 2017. Subjective Pt evaluation today including: conversation w/ patient, physical exam, chart review, lab review, review of inpatient medication list Pain: 5-6/10 back pain reported PO Intake: NPO for EGD Voiding: no voiding problems Ms. Gomez reports she did not have a good night's sleep due to her pain. She states it is unrelenting and returns back to baseline unless she continues to take analgesic medications. She reports the pain is the same. originating in the back and wrapping around to the front. She remains with a decreased appetite , although is NPO for her EGD. Constitutional: No fever, No chills Cardiovascular: No chest pain Abdomen: + pain, + constipation, No nausea, No vomiting Musculoskeletal: + problem reported (upper back pain) All Other Systems: Reviewed and Negative Medications Current Inpatient Medications Medications (Trade) Dose Ordered Sig/Rosa Route Start Time Stop Time Status Last Admin Dose Admin Ioversol (Optiray 320) 100 ml UD PRN IV 09/18/17 17:30 09/22/17 17:29 Sodium Chloride 1,000 ml @ 100 mls/hr Q10H IV 09/18/17 23:59 10/18/17 23:58 09/21/17 00:14 100 MLS/HR Acetaminophen (Tylenol Tab) 650 mg Q4H PRN PO 09/18/17 21:45 10/18/17 21:44 09/19/17 05:59 650 MG Ondansetron HCl (Zofran Inj) 4 mg Q6H PRN IV 09/18/17 21:45 10/18/17 21:44 09/19/17 21:41 4 MG Ketorolac Tromethamine (Toradol Inj) 15 mg Q6H PRN IV 09/18/17 21:45 09/23/17 21:44 09/20/17 15:45 15 MG Lidocaine (Lidoderm Patch 5%) 1 patch QAM TD 09/19/17 09:00 10/19/17 08:59 09/21/17 07:59 1 PATCH Miscellaneous (Remove Lidoderm Patch) 1 ea DAILY@21 N/A 09/19/17 21:00 10/19/17 20:59 09/20/17 20:48 1 EA Hydralazine HCl (HydrALAZINE INJ) 10 mg Q6H PRN IV. 09/19/17 06:15 10/19/17 06:14 09/20/17 00:38 10 MG Docusate Sodium (coLACE CAP) 100 mg BID PO 09/19/17 21:00 10/19/17 20:59 09/21/17 07:55 100 MG Tramadol HCl (Ultram Tab) 25 mg Q4H PRN PO 09/19/17 17:30 10/19/17 17:29 09/21/17 07:55 25 MG Enoxaparin Sodium (Lovenox Inj) 40 mg QPM SQ 09/19/17 21:00 10/20/17 08:59 Future Hold 09/19/17 21:07 40 MG Magnesium Hydroxide (Milk Of Magnesia Susp) 30 ml Q6H PRN PO 09/19/17 21:30 10/19/17 21:29 09/19/17 21:41 30 ML Valsartan (Diovan Tab) 160 mg QAM PO 09/21/17 09:00 10/21/17 08:59 Polyethylene (Miralax Powder Packet) 17 gm DAILY PO 09/21/17 09:00 10/21/17 08:59 09/20/17 18:12 17 GM Objective Vital Signs Date Time Temp Pulse Resp B/P (MAP) Pulse Ox O2 Delivery O2 Flow Rate FiO2 09/21/17 07:20 36.4 93 20 163/94 (117) 95 Room Air 09/21/17 04:33 37.1 92 18 170/84 (112) 97 Room Air 09/21/17 01:17 Room Air 09/20/17 23:00 36.4 96 20 168/85 (112) 95 Room Air 09/20/17 19:33 172/99 (123) 97 173/88 (116) 09/20/17 19:30 36.7 63 16 178/101 (126) 96 Room Air 09/20/17 16:00 Room Air 09/20/17 15:20 36.8 89 16 175/93 (120) 96 Room Air 09/20/17 11:36 36.8 92 18 123/80 (94) 98 Room Air Physical Exam General Appearance: WD/WN, no apparent distress Respiratory/Chest: lungs clear, normal breath sounds, no respiratory distress, no accessory muscle use Cardiovascular: regular rate, rhythm, no edema Abdomen: non tender, soft, + pertinent finding (tender over upper/middle thoracic region, in the midline) Extremities: no pedal edema, no calf tenderness Laboratory Results Last 24 Hours Test 09/21/17 06:25 White Blood Count 6.57 K/uL Red Blood Count 4.59 M/uL Hemoglobin 14.3 g/dL Hematocrit 40.4 % Mean Corpuscular Volume 88.0 fL Mean Corpuscular Hemoglobin 31.2 pg Mean Corpuscular Hemoglobin Concent 35.4 g/dl Platelet Count 274 K/uL Mean Platelet Volume 9.1 fL Neutrophils (%) (Auto) 73.6 % Lymphocytes (%) (Auto) 16.4 % Monocytes (%) (Auto) 9.3 % Eosinophils (%) (Auto) 0.3 % Basophils (%) (Auto) 0.2 % Neutrophils # (Auto) 4.84 K/uL Lymphocytes # (Auto) 1.08 K/uL Monocytes # (Auto) 0.61 K/uL Eosinophils # (Auto) 0.02 K/uL Basophils # (Auto) 0.01 K/uL RDW Standard Deviation 43.4 fL RDW Coefficient of Variation 13.5 % Immature Granulocyte % (Auto) 0.2 % Immature Granulocyte # (Auto) 0.01 K/uL Sodium Level 127 mmol/L Potassium Level 3.6 mmol/L Chloride Level 95 mmol/L Carbon Dioxide Level 22 mmol/L Anion Gap 10.0 mmol/L Blood Urea Nitrogen 9 mg/dl Creatinine 0.63 mg/dl Est Creatinine Clear Calc Drug Dose 66.7 ml/min Estimated GFR () 101.7 Estimated GFR (Non- 87.7 BUN/Creatinine Ratio 13.5 Random Glucose 105 mg/dl Calcium Level 9.3 mg/dl Total Bilirubin 0.8 mg/dl Aspartate Amino Transf (AST/SGOT) 16 U/L Alanine Aminotransferase (ALT/SGPT) 18 U/L Alkaline Phosphatase 66 U/L Total Protein 7.9 gm/dl Albumin 3.8 gm/dl Globulin 4.1 gm/dl Albumin/Globulin Ratio 0.9 Assessment and Plan Ms. Gomez is a 77-year-old female with past medical history of hypertension that presents with a two-week history of worsening back pain. Patient subsequently found to have hyponatremia with a sodium of 121 along with uncontrolled back pain. Additional incidental finding of liver mass on imaging. Hyponatremia - Sodium of 121 on admission, improved to 127 today, improving by 1 point per day - likely due to poor PO intake - Holding home HCTZ until sodium improves - continue IV NSS @ 100 mls/hr - Follow BMP Back Pain - thoracic x-ray was negative for compression fracture or subluxation - x-ray did note degenerative changes in her thoracic spine as well as vacuum discs which could be contributing to her pain - Lidocaine Patch, IV toradol and 25mg of Tramadol q4h ordered. Pt reports tramadol has the best result. - GI consulted, thank you for recs -> EGD WNL -> will undergo gastric emptying study tomorrow - given possible neuropathic nature of pain, will consult pain management for recommendations - PT/OT consults given weakness - CTA Chest show no acute cardiopulmonary findings Constipation - colace 100mg BID, miralax and milk of mag Liver Mass - MRI abdomen revealed a benign hemangioma -> discussed w/patient Hypertension - Holding home HCTZ - continue home dose valsartan - BP still 160-180 systolic on home dose of valsartan, add 12.5mg of metoprolol tartrate BID and monitor - 10mg hydralazine q6h prn in case of elevations beyond 180 systolic DVT - SCDs, lovenox 40mg SQ QPM Code Status - Full Resuscitation Disposition - pending improvement in sodium levels as well as improved pain management Resident Physician Supervision Note: I was present with the resident physician during the history and exam. I discussed the case with the resident and agree with the findings and plan as documented in the note. Fortunately her EGD was unremarkable; however this still leaves the cause of her discomfort uncertain. A gastric emptying study is planned for tomorrow; while this would perhaps explain the early satiety, I am not sure if it would explain the pain. As such, will consult pain management , perhaps they can help in both diagnosis and therapeutic intervention. Her sodium is improved though she remains hyponatremic. We will continue with gentle IV hydration; I suspect her sodium level will improve as her oral intake improves. Documented By: Thomas Acosta Resident Tracking Resident Involvement: Resident Care Provided Care Provided: Adult [facility] Medicine
--- NOTE | 2017-09-21 10:06 | Gastroenterology Progress Note ---
Progress Note Date of Service: Sep 21, 2017 Subjective Pt evaluation today including: conversation w/ patient, physical exam, chart review, lab review, review of studies, review of inpatient medication list cc f/u early satiety, atypical chest pain HPI Pt states she continues to have the chest pain. Pain meds help but pain is back when they wear off. She states can only take couple bites of food then full and cannot eat anymore. Medications Current Inpatient Medications Medications (Trade) Dose Ordered Sig/Rosa Route Start Time Stop Time Status Last Admin Dose Admin Ioversol (Optiray 320) 100 ml UD PRN IV 09/18/17 17:30 09/22/17 17:29 Sodium Chloride 1,000 ml @ 100 mls/hr Q10H IV 09/18/17 23:59 10/18/17 23:58 09/21/17 00:14 100 MLS/HR Acetaminophen (Tylenol Tab) 650 mg Q4H PRN PO 09/18/17 21:45 10/18/17 21:44 09/19/17 05:59 650 MG Ondansetron HCl (Zofran Inj) 4 mg Q6H PRN IV 09/18/17 21:45 10/18/17 21:44 09/19/17 21:41 4 MG Ketorolac Tromethamine (Toradol Inj) 15 mg Q6H PRN IV 09/18/17 21:45 09/23/17 21:44 09/20/17 15:45 15 MG Lidocaine (Lidoderm Patch 5%) 1 patch QAM TD 09/19/17 09:00 10/19/17 08:59 09/21/17 07:59 1 PATCH Miscellaneous (Remove Lidoderm Patch) 1 ea DAILY@21 N/A 09/19/17 21:00 10/19/17 20:59 09/20/17 20:48 1 EA Hydralazine HCl (HydrALAZINE INJ) 10 mg Q6H PRN IV. 09/19/17 06:15 10/19/17 06:14 09/20/17 00:38 10 MG Docusate Sodium (coLACE CAP) 100 mg BID PO 09/19/17 21:00 10/19/17 20:59 09/21/17 07:55 100 MG Tramadol HCl (Ultram Tab) 25 mg Q4H PRN PO 09/19/17 17:30 10/19/17 17:29 09/21/17 07:55 25 MG Enoxaparin Sodium (Lovenox Inj) 40 mg QPM SQ 09/19/17 21:00 10/20/17 08:59 Future Hold 09/19/17 21:07 40 MG Magnesium Hydroxide (Milk Of Magnesia Susp) 30 ml Q6H PRN PO 09/19/17 21:30 10/19/17 21:29 09/19/17 21:41 30 ML Valsartan (Diovan Tab) 160 mg QAM PO 09/21/17 09:00 10/21/17 08:59 Polyethylene (Miralax Powder Packet) 17 gm DAILY PO 09/21/17 09:00 10/21/17 08:59 09/20/17 18:12 17 GM Objective Vital Signs Date Time Temp Pulse Resp B/P (MAP) Pulse Ox O2 Delivery O2 Flow Rate FiO2 09/21/17 08:00 Room Air 09/21/17 07:20 36.4 93 20 163/94 (117) 95 Room Air 09/21/17 04:33 37.1 92 18 170/84 (112) 97 Room Air 09/21/17 01:17 Room Air 09/20/17 23:00 36.4 96 20 168/85 (112) 95 Room Air 09/20/17 19:33 172/99 (123) 97 173/88 (116) 09/20/17 19:30 36.7 63 16 178/101 (126) 96 Room Air 09/20/17 16:00 Room Air 09/20/17 15:20 36.8 89 16 175/93 (120) 96 Room Air 09/20/17 11:36 36.8 92 18 123/80 (94) 98 Room Air Physical Exam General Appearance: WD/WN, no apparent distress Respiratory/Chest: lungs clear, no respiratory distress Cardiovascular: regular rate, rhythm, no edema Abdomen: normal bowel sounds, non tender, soft, no organomegaly Neurologic/Psych: spray i painter II-XII nml as tested, normal mood/affect, oriented x 3 Skin: normal color, warm/dry Laboratory Results Last 24 Hours Test 09/21/17 06:25 White Blood Count 6.57 K/uL Red Blood Count 4.59 M/uL Hemoglobin 14.3 g/dL Hematocrit 40.4 % Mean Corpuscular Volume 88.0 fL Mean Corpuscular Hemoglobin 31.2 pg Mean Corpuscular Hemoglobin Concent 35.4 g/dl Platelet Count 274 K/uL Mean Platelet Volume 9.1 fL Neutrophils (%) (Auto) 73.6 % Lymphocytes (%) (Auto) 16.4 % Monocytes (%) (Auto) 9.3 % Eosinophils (%) (Auto) 0.3 % Basophils (%) (Auto) 0.2 % Neutrophils # (Auto) 4.84 K/uL Lymphocytes # (Auto) 1.08 K/uL Monocytes # (Auto) 0.61 K/uL Eosinophils # (Auto) 0.02 K/uL Basophils # (Auto) 0.01 K/uL RDW Standard Deviation 43.4 fL RDW Coefficient of Variation 13.5 % Immature Granulocyte % (Auto) 0.2 % Immature Granulocyte # (Auto) 0.01 K/uL Sodium Level 127 mmol/L Potassium Level 3.6 mmol/L Chloride Level 95 mmol/L Carbon Dioxide Level 22 mmol/L Anion Gap 10.0 mmol/L Blood Urea Nitrogen 9 mg/dl Creatinine 0.63 mg/dl Est Creatinine Clear Calc Drug Dose 66.7 ml/min Estimated GFR () 101.7 Estimated GFR (Non- 87.7 BUN/Creatinine Ratio 13.5 Random Glucose 105 mg/dl Calcium Level 9.3 mg/dl Total Bilirubin 0.8 mg/dl Aspartate Amino Transf (AST/SGOT) 16 U/L Alanine Aminotransferase (ALT/SGPT) 18 U/L Alkaline Phosphatase 66 U/L Total Protein 7.9 gm/dl Albumin 3.8 gm/dl Globulin 4.1 gm/dl Albumin/Globulin Ratio 0.9 Assessment and Plan atypical chest pain--abrupt onset odd for esophageal process but possible. EGD today. Again went over procedure and risks which include but not limited to med reaction, bleeding, perforation, aspiration, and missed lesions. early satiety--could be from lack of eating with other pain but could indicate gastric process--EGD as above wt loss--pt not eating much since pain started. nausea--? GI process--EGD as above change in bms--no stools but not eating. She is due for colonscopy 11/2017 but if this is ongoing then recommend this be moved up as outpt. hx colon polyps--as above
--- NOTE | 2017-09-21 10:45 | GI REPORT ---
Patient Name: Pretty Gomez Procedure Date: 09/21/2017 10:10 AM Date of : 1940 Admit Type: Inpatient Age: 77 Gender: Female Attending MD: Lev Smith MD Procedure: Upper GI endoscopy Providers: Lev Smith MD Referring MD: Thomas Acosta Indications: Chest pain (non cardiac), Early satiety Medicines: Monitored Anesthesia Care Complications: No immediate complications. Estimated blood loss: Minimal. Estimated Blood Loss: Estimated blood loss was minimal. Procedure: Pre-Anesthesia Assessment: - The risks and benefits of the procedure and the sedation options and risks were discussed with the patient. All questions were answered and informed consent was obtained. - Patient identification and proposed procedure were verified prior to the procedure by the physician, the nurse and the chemistry quality control technician. The procedure was verified in the procedure room. After obtaining informed consent, the endoscope was passed under direct vision. Throughout the procedure, the patient's blood pressure, pulse, and oxygen saturations were monitored continuously. The Scope was introduced through the mouth, and advanced to the third part of duodenum. The upper GI endoscopy was accomplished without difficulty. The patient tolerated the procedure well. Procedure and risks explained to patient which include but not limited to medication reaction, bleeding, perforation, aspiration , and missed lesions. Judicious gas insufflation was used and gas removal done on the way out. The lumen was always visualized when advancing the scope. Prep was good. Washes and suctioning used as needed to get good visualization of the mucosa. Retroflexion to look at the fundus and cardia of the stomach and GE junction was done. Findings: The Z-line was regular and was found 40 cm from the incisors. A 2 cm hiatal hernia was present. Patchy mildly erythematous mucosa was found in the gastric body and in the gastric antrum. Biopsies were taken with a cold forceps from the antrum for Helicobacter pylori testing. Estimated blood loss was minimal. Carpet of sessile polyps were found in the gastric fundus. Biopsies were taken with a cold forceps for histology. Estimated blood loss was minimal. A medium diverticulum was found in the third portion of the duodenum. There is no endoscopic evidence of bezoar/food (residue) in the entire examined stomach. The exam was otherwise without abnormality. Impression: - Z-line regular, 40 cm from the incisors. - 2 cm hiatal hernia. - Erythematous mucosa in the gastric body and antrum. Biopsied. - Carpet of gastric polyps in the fundus. Biopsied. - Duodenal diverticulum. - The examination was otherwise normal. Recommendation: - [facility] care. - Low fiber diet. No endoscopic reason for early satiety and no malignancy noted. Order gastric emptying study. Lev Smith M.D. Lev Smith MD 09/21/2017 10:44:43 AM This report has been signed electronically. Note Initiated On: 09/21/2017 10:10 AM Number of Addenda: 0 I attest to the content of the Intraoperative Record and orders documented therein, exceptions below {[id number]}
--- NOTE | 2017-09-21 10:52 | Progress Note ---
Progress Note Date of Service Sep 21, 2017. Progress Note See EGD report. No lesions to explain chest pain or early satiety. Ordered low fiber diet and gastric emptying study. Went over results of EGD with patient who is awake and alert. She states having same chest pain after as before procedure. I recommend further investigation of nerve impingement causing neuropathic pain or musculoskeletal pain causing chest pain. I am going off service tomorrow 09/22/[address] Finley is on schedule to be assuming GI care then.
[2017-09-21] MEDS: VALSARTAN 80 MG TAB PO SCH (11:56)
[2017-09-21] MEDS: KETOROLAC TROMETHAMINE 15 MG/ML VIAL IV PRN ×2 (11:57→18:38)
--- NOTE | 2017-09-21 12:15 | Anesthesiology Progress Note ---
Anesthesia Post Op Note Date & Time Sep 21, 2017 at 12:15 Vital Signs Vital Signs Past 12 Hours Date Time Temp Pulse Resp B/P (MAP) Pulse Ox O2 Delivery O2 Flow Rate FiO2 09/21/17 11:31 37.0 90 24 184/100 (128) 99 Room Air 178/92 (120) 09/21/17 10:52 86 20 163/105 (124) 98 Room Air 09/21/17 10:46 86 20 187/102 (130) 98 Room Air 09/21/17 10:37 83 20 180/96 (124) 98 Room Air 09/21/17 10:06 36.4 91 20 175/96 (122) 98 Room Air 09/21/17 08:00 Room Air 09/21/17 07:20 36.4 93 20 163/94 (117) 95 Room Air 09/21/17 04:33 37.1 92 18 170/84 (112) 97 Room Air 09/21/17 01:17 Room Air Notes Mental Status: alert / awake / arousable, participated in evaluation Pt Amnestic to Procedure: Yes Nausea / Vomiting: adequately controlled Pain: adequately controlled Airway Patency, RR, SpO2: stable & adequate BP & HR: stable & adequate Hydration State: stable & adequate Anesthetic Complications: no major complications apparent
[2017-09-21] MEDS: POLYETHYLENE (MIRALAX) 17 GM PACK PO SCH (14:19)
[2017-09-21] MEDS: ACETAMINOPHEN 325 MG TAB PO PRN (15:10)
[2017-09-21] MEDS: ENOXAPARIN 40 MG/0.4 ML SYR SQ SCH (20:41)
[2017-09-21] MEDS: METOPROLOL TARTRATE 25 MG TAB PO SCH (20:46)
[2017-09-21] MEDS ORDERED: MoRPHine SULFATE 2 MG/ML CARP IV STA (23:15)
[2017-09-22] MEDS: KETOROLAC TROMETHAMINE 15 MG/ML VIAL IV PRN (04:35)
[2017-09-22 05:15] VITALS: BP 182/90; PULSE 80
[2017-09-22] MEDS: HydrALAZINE HCL 20 MG/ML VIAL IV. PRN (05:27)
[2017-09-22 06:33] VITALS: BP 150/72; PULSE 98; O2SAT 97
[2017-09-22 07:02] LABS: CREATININE 0.64 mg/dl (0.60-1.20); POTASSIUM 3.3 mmol/L (3.5-5.1)
[2017-09-22 07:12] VITALS: BP 148/75; PULSE 100; TEMP 36.5; O2SAT 97
[2017-09-22] MEDS ORDERED: POTASSIUM CHLORIDE 20 MEQ TABCR PO STA (07:41)
[2017-09-22] MEDS: TRAMADOL HCL 50 MG TAB PO PRN (07:43)
[2017-09-22] MEDS: SODIUM CHLORIDE 0.9% 1000ML 1,000 ML IV SCH ×2 (07:44→18:35)
[2017-09-22] MEDS: MAGNESIUM HYDROXIDE SUSP 30 ML UDC PO PRN (07:46)
[2017-09-22] MEDS: VALSARTAN 80 MG TAB PO SCH (07:47)
[2017-09-22] MEDS: DOCUSATE SODIUM 100 MG CAP PO SCH ×2 (07:47→20:03)
[2017-09-22] MEDS: LIDODERM (LIDOCAINE) PATCH 5% TD SCH (07:49)
[2017-09-22] MEDS: POLYETHYLENE (MIRALAX) 17 GM PACK PO SCH (07:49)
[2017-09-22] MEDS: METOPROLOL TARTRATE 25 MG TAB PO SCH ×2 (07:49→20:03)
--- NOTE | 2017-09-22 09:33 | Pain Management Consultation ---
Pain Management Consultation Date of Consultation Sep 22, 2017. Reason for Consultation Midthoracic back pain traveling to inframammary region bilaterally slightly right greater than left-sided Pain Location 1 - 2 - 3 - 4 - History Mrs. Gomez is a 77-year-old white female who was admitted due to complaints of pain starting approximately 2 weeks prior to admission in the midthoracic back region traveling along the posterior lateral and anterior chest wall to the inframammary location bilaterally right greater than left sided. She has denied any known injury but reported onset of her symptoms approximately 1-2 days after she was pulling on a lawnmower cord which "caught". Patient underwent evaluation by her family doctor who pursued a trigger point injection with some short-term benefit. Her pain then became progressive and intractable which led to admission. She describes the pain as an aching and occasionally burning sensation. Patient rates her pain at a 4-8/10. She feels as if she "cannot catch her breath" and believes there is a slight increase in pain with deep breathing activities. The patient has undergone a CTA scan of the chest which ruled out pulmonary emboli or other lung pathology. She denies known history of a rash or any recent falling episodes. The patient has been utilizing NSAIDs, Lidoderm patch as well as tramadol upon this admission with minimal symptomatic improvement in her pain complaints. X-ray studies of the thoracic spine as well as a rib series completed prior to admission failed to reveal evidence of fracture of the thoracic vertebral bodies or ribs. The patient reports minimal exacerbation with positional change or ambulatory activities. She is reporting poor sleep quality due to the discomfort. Patient is further reporting difficulties with nausea and constipation. She has not had a normal bowel movement in approximately 2 weeks. She describes an abdominal fullness. She did undergo EGD yesterday. Patient denies neck pain or cervical radicular component to symptoms. She denies any significant abdominal pain. She denies low back or lumbar radicular pain. No bowel or bladder incontinence. She denies any saddle anesthesias. Patient has no further constitutional complaints at this time. Plan of care discussed with Dr. Campbell. Past Medical/Surgical History (1) Chest pain (2) Liver mass, left lobe (3) Hyponatremia (4) Hypertension Social / Work History Smoking Status: Never smoker Smokeless Tobacco Use: No Alcohol Use: none Drug Use: none Occupation: retired Allergies Coded Allergies: Ibuprofen (Verified Allergy, Unknown, RASH, 02/21/11) Medications Current Inpatient Medications Medications (Trade) Dose Ordered Sig/Rosa Route Start Time Stop Time Status Last Admin Dose Admin Ioversol (Optiray 320) 100 ml UD PRN IV 09/18/17 17:30 09/22/17 17:29 Sodium Chloride 1,000 ml @ 100 mls/hr Q10H IV 09/18/17 23:59 10/18/17 23:58 09/22/17 07:44 100 MLS/HR Acetaminophen (Tylenol Tab) 650 mg Q4H PRN PO 09/18/17 21:45 10/18/17 21:44 09/21/17 15:10 650 MG Ondansetron HCl (Zofran Inj) 4 mg Q6H PRN IV 09/18/17 21:45 10/18/17 21:44 09/19/17 21:41 4 MG Ketorolac Tromethamine (Toradol Inj) 15 mg Q6H PRN IV 09/18/17 21:45 09/23/17 21:44 09/22/17 04:35 15 MG Lidocaine (Lidoderm Patch 5%) 1 patch QAM TD 09/19/17 09:00 10/19/17 08:59 09/21/17 07:59 1 PATCH Miscellaneous (Remove Lidoderm Patch) 1 ea DAILY@21 N/A 09/19/17 21:00 10/19/17 20:59 09/21/17 20:31 1 EA Hydralazine HCl (HydrALAZINE INJ) 10 mg Q6H PRN IV. 09/19/17 06:15 10/19/17 06:14 09/22/17 05:27 10 MG Docusate Sodium (coLACE CAP) 100 mg BID PO 09/19/17 21:00 10/19/17 20:59 09/22/17 07:47 100 MG Enoxaparin Sodium (Lovenox Inj) 40 mg QPM SQ 09/19/17 21:00 10/20/17 08:59 Future hold 09/21/17 20:41 40 MG Magnesium Hydroxide (Milk Of Magnesia Susp) 30 ml Q6H PRN PO 09/19/17 21:30 10/19/17 21:29 8/16/18 07:46 30 ML Valsartan (Diovan Tab) 160 mg QAM PO 09/21/17 09:00 10/21/17 08:59 09/22/17 07:47 160 MG Polyethylene (Miralax Powder Packet) 17 gm DAILY PO 09/21/17 09:00 10/21/17 08:59 09/21/17 14:19 17 GM Metoprolol Tartrate (Lopressor Tab) 12.5 mg BID PO 09/21/17 21:00 10/21/17 20:59 09/22/17 07:49 12.5 MG Tapentadol (Nucynta Tab) 50 mg Q4H PRN PO 09/22/17 08:15 10/22/17 08:14 Review of Systems Constitutional: Negative for fever, chills, sweats Eyes: Negative for eye pain, photophobia, drainage Ear, nose, mouth, throat: Negative for ear pain, nasal congestion, mouth lesions , change in voice Respiratory: Negative for wheezing, sputum production Cardiovascular: Negative for chest pain, palpitations, calf pain Gastrointestinal: Negative for abdominal pain, belching, bloating Genitourinary: Negative for dysuria, urinary incontinence, urinary urgency Musculoskeletal: Negative for deformities Integumentary: Negative for nail changes, skin yellowing, pruritus Neurological: Negative for abnormal speech, seizure type activity Physical Exam Height & Weight: Height 5 feet, 4.00 inches. Weight 64.000 (Kilograms) 141 (Pounds) Last Vital Signs Documentation Date Time Temp Pulse Resp B/P (MAP) Pulse Ox O2 Delivery O2 Flow Rate FiO2 09/22/17 08:00 Room Air 09/22/17 07:12 36.5 100 24 148/75 (99) 97 Exam: General: Patient sitting up upon entering the room in no obvious acute distress. Her breathing is somewhat rapid. Speech and thought process appropriate. Mood and affect appropriate. Cognition intact. Neck: Full range motion without limitation. Nontender over the midline. No paravertebral tenderness. Upper extremities: Strength 5/5 with handgrip and opposition. Sensation intact without deficits. Chest: Nontender over the costosternal junction. Nontender with AP/lateral compression of the chest wall. Patient is tender along the rib and intercostal space at approximately the level of fourth-sixth ribs bilaterally right greater than left-sided. There is no palpable abnormality or visible rash evident. Thoracic spine: Patient mildly tender over the midline at the fifth-sixth thoracic vertebral body. Tender in the paravertebral and posterior lateral chest wall with corresponding rib intercostal space. Nontender over the scapular region. There is no appreciable myofascial spasm or myoneural trigger points. Abdomen: Protuberant. Soft. Nontender to palpation. Lower extremities: Strength 5/5 with dorsi and plantar flexion. Sensation intact without deficits. Trace ankle and pretibial edema. Neurologic: Cranial nerves grossly intact. Ambulatory function not witnessed. Laboratory Laboratory Results (Last CBC): 09/21/17 06:25 Red Blood Count 4.59, Mean Corpuscular Volume 88.0, Mean Corpuscular Hemoglobin 31.2, Mean Corpuscular Hemoglobin Concent 35.4, Mean Platelet Volume 9.1, Neutrophils (%) (Auto) 73.6, Lymphocytes (%) (Auto) 16.4, Monocytes (%) (Auto) 9.3, Eosinophils (%) (Auto) 0.3, Basophils (%) (Auto) 0.2, Neutrophils # (Auto) 4.84, Lymphocytes # (Auto) 1.08 L, Monocytes # (Auto) 0.61 H, Eosinophils # ( Auto) 0.02, Basophils # (Auto) 0.01 Imaging MRI: reports reviewed MRI Findings Patient: MORENA GOMEZ Address1: [address] [place] [address] Rec: [id number] Address2: Acct ID: [id number] [facility] Zip: [place] [address] Date: 1940 Sex: F Room/Bed: [facility] Ref Phy: Josh Pollard MD SC: C.MED Att Phy: Rayray Talley M.D. Report #: [id number] Saranya Phy: Josh Pollard MD Test: ABC Admit Phy: El Boogie MD Director Workforce Management: SAURAV Interpreting Phy: Fan Pacheco M.D. Diagnosis: HYPONATREMIA Ordering Phy: Rayray Talley M.D. Service Date: 09/19/17 Admit Date: 09/19/1807/12/18 MNE: PWRSCRIBE CONF: DICTATED BY: Fan Pacheco M.D.]] CC: Josh Pollard MD Pasquariello, Rick D M.D. Endcc: [~ rep ct add3]] MRI OF THE ABDOMEN COMBO CLINICAL HISTORY: Follow-up liver mass.. COMPARISON STUDY: Chest CT dated 09/18/2017. TECHNIQUE: MRI of the abdomen is performed transverse T1 and T2-weighted sequences in the axial and coronal planes. Contrast enhanced sequences were acquired following the IV administration of 10 cc of Eovist. Diffusion-weighted imaging and subtraction imaging were performed. High resolution coronal MRCP imaging was performed. 3-D reformats were created and assessed. FINDINGS: Lower chest: No pleural effusion is identified. The heart is normal in size. Liver: The liver is normal in size, contour, and signal intensity. No intrahepatic biliary ductal dilatation is seen. The hepatic veins and portal veins are patent. There is a 2.4 x 3.6 cm T2 hyperintense lesion identified in the left hepatic lobe. This demonstrates foci of peripheral discontinuous nodular enhancement with gradual delayed fill-in. This does not retain Eovist on the extended delays and is consistent with a benign hemangioma. A 9 mm cyst is present in hepatic segment VIII. Gallbladder/MRCP: The gallbladder is normal in appearance. No gallstones are identified. There is no intra or extrahepatic biliary ductal dilatation. The common bile duct measures up to 4 mm. There are no filling defects to indicate choledocholithiasis. The pancreatic duct is normal in caliber. Spleen: Normal in size and signal intensity. Pancreas: Unremarkable. Adrenal glands: Unremarkable. Kidneys: The kidneys are normal in size and without hydronephrosis. The kidneys enhance and excrete symmetrically. Abdominal aorta: Normal in course and caliber. Bowel: Visualized portions of the small bowel and colon show no evidence of obstruction. Peritoneum: There is no abdominal ascites. Lymphadenopathy: None. Skeletal structures: Visualized skeletal structures times are normal marrow signal intensity. IMPRESSION: 1. The 3.6 cm lesion in the left hepatic lobe is consistent with a benign hemangioma. 2. An additional 9 mm cyst is noted in the right lobe. 3. Unremarkable MRCP. No gallstones are identified. Electronically signed by: Fan Pacheco M.D. 09/19/2017 8:17 AM Dictated Date/Time: 09/19/2017 8:08 AM The status of this report is Signed. Draft = Not yet reviewed or approved by Radiologist. Signed = Reviewed and approved by Radiologist. <AttendingPhy>Rayray Talley M.D.</AttendingPhy> <FamilyPhy>Josh Pollard MD</FamilyPhy> <PrimaryPhy>Josh Pollard MD</PrimaryPhy> <UnitNumber> [id number]</UnitNumber> <VisitNumber>[id number]</VisitNumber> <PatientName> MORENA GOMEZ</PatientName> <DateOfBirth>1940</DateOfBirth> < Location>C.MED</Location> <ServiceDate>09/18/17</ServiceDate> <MNE>ESINDI</MNE> <OrderingPhy CT: reports reviewed CT Findings Patient: MORENA GOMEZ Address1: [address] [place] [address] Rec: [id number] Address2: Acct ID: [id number] [facility] Zip: [place] [address] Date: 1940 Sex: F Room/Bed: Ref Phy: Josh Pollard MD SC: C.EDC Att Phy: Report #: [id number] Saranya Phy: Josh Pollard MD Test: CXPEA Admit Phy: Director Workforce Management: PULAJM Interpreting Phy: Aaron Olsen MD Diagnosis: SEVERE BACK PAIN, SHORTNESS OF BREATH, SHAKING, Ordering Phy: Ariel Gill M.D. Service Date: 09/18/17 Admit Date: 09/18/17 MNE: PWRSCRIBE CONF: DICTATED BY: Aaron Olsen MD]] CC: Josh Pollard MD Catherine, Andrew T., M.D. Endcc: [~ rep ct add3]] CT ANGIOGRAPHY OF THE CHEST, PULMONARY EMBOLUS PROTOCOL CLINICAL HISTORY: Shortness of breath. COMPARISON STUDY: Chest radiograph September 23, 2017. TECHNIQUE: Following IV administration of 89 mL of [id number]-320, helical axial images of the chest were obtained utilizing the pulmonary embolus protocol. Maximal intensity projections and sagittal and coronal reformats were viewed on an independent 3D workstation. IV contrast was administered without complication. A dose lowering technique was utilized adhering to the principles of ALARA. CT DOSE: 219.97 mGy.cm FINDINGS: No pulmonary emboli are identified. There is no evidence for thoracic aortic dissection. The size of the heart is normal. There is no pericardial effusion. No enlarged thoracic lymph nodes are present. There is no consolidation to suggest pneumonia. Central airways are patent. Linear and groundglass opacities reflect atelectasis. Visualized portions of the upper abdomen demonstrate a probable 4.1 cm hypodense lateral segment hepatic lesion. IMPRESSION: 1. No pulmonary emboli identified. 2. No acute intrathoracic findings. 3. Probable 4.1 cm hypodense lateral segment hepatic mass which is suboptimally assessed on this exam. Nonemergent liver protocol CT of the abdomen and pelvis is recommended. Electronically signed by: Aaron Olsen M.D. 09/18/2017 7:35 PM Dictated Date/Time: 09/18/2017 7:23 PM The status of this report is Signed. Draft = Not yet reviewed or approved by Radiologist. Signed = Reviewed and approved by Radiologist. <AttendingPhy></AttendingPhy> <FamilyPhy>Josh Pollard MD</FamilyPhy> < PrimaryPhy>Josh Pollard MD</PrimaryPhy> <UnitNumber>[id number]</UnitNumber > <VisitNumber>[id number]</VisitNumber> <PatientName>MORENA GOMEZ</ PatientName> <DateOfBirth>1940</DateOfBirth> <Location>C.EDC</Location> < ServiceDate>09/18/17</ServiceDate> <MNE>ESINDI</MNE> <OrderingPhy Radiology: reports reviewed Radiology Findings Patient: MORENA GOMEZ Address1: [address] [place] [address] Rec: [id number] Address2: Acct ID: [id number] [facility] Zip: [place] [address] Date: 1940 Sex: F Room/Bed: N277-2 Ref Phy: Josh Pollard MD SC: C.MED Att Phy: Rayray Talley M.D. Report #: [id number] Saranya Phy: Josh Pollard MD Test: TS3 Admit Phy: El Boogie MD Director Workforce Management: MARISEL Interpreting Phy: He Leigh M.D. Diagnosis: HYPONATREMIA Ordering Phy: Jaswant Byrne M.D. Service Date: 09/19/17 Admit Date: 09/19/1807/12/18 MNE: PWRSCRIBE CONF: DICTATED BY: He Leigh M.D.]] CC: Josh Pollard MD Pasquariello, Rick D M.D. Tarmohamed, Zenovia ., M.D. Endcc: [~ rep ct add3]] THORACIC SPINE 3 VIEWS ROUTINE HISTORY: Trauma. Pain. r/o compression fracture COMPARISON: None. FINDINGS: There is no fracture. No subluxation. Considerable degenerative disc change throughout. Vacuum disc are identified throughout the mid to lower thoracic region. No evidence for compression deformity. No evidence for subluxation. IMPRESSION: Degenerative change. No acute process. The above report was generated using voice recognition software. It may contain grammatical, syntax or spelling errors. Electronically signed by: He Leigh M.D. 09/19/2017 1:56 PM Dictated Date/Time: 09/19/2017 1:55 PM The status of this report is Signed. Draft = Not yet reviewed or approved by Radiologist. Signed = Reviewed and approved by Radiologist. Patient: MORENA GOMEZ Address1: [address] [place] [address] Rec: [id number] Address2: Acct ID: [id number] [facility] Zip: [place] [address] Date: 1940 Sex: F Room/Bed: Ref Phy: Josh Pollard MD SC: [id number] Att Phy: Josh Pollard MD Report #: [id number] Saranya Phy: Josh Pollard MD Test: RUW Admit Phy: Director Workforce Management: FRANCISCO Interpreting Phy: Fan Pacheco M.D. Diagnosis: RIGHT MID BACK PAIN W/ SHORTNESS OF BREATH Ordering Phy: Josh Pollard MD Service Date: 09/13/17 Admit Date: 09/13/17 MNE: PWRSCRIBE CONF: DICTATED BY: Fan Pacheco M.D.]] CC: Josh Pollard MD Endcc: [~ rep ct add3]] PA CHEST WITH RIGHT-SIDED RIB SERIES CLINICAL HISTORY: Dyspnea. Right-sided chest wall pain. FINDINGS: A PA chest radiograph with 4 additional views may right-sided rib series is compared to study dated 07/29/2017. The heart is top normal for projection. There is atherosclerotic calcification of the thoracic aorta. The pulmonary vascular structures noncongested. Chronic interstitial thickening is similar to previous. The lungs and pleural spaces are clear. No pneumothorax is seen. The skeletal structures are osteopenic. There is no radiographic evidence of acute/distracted right-sided rib fracture on the rib series. The remainder of the bony thorax is grossly intact. Degenerative change is noted in the thoracic spine. IMPRESSION: 1. The lungs are clear. 2. There is no radiographic evidence of acute/distracted right-sided rib fracture on the rib series. Electronically signed by: Fan Pacheco M.D. 09/13/2017 9:15 AM Dictated Date/Time: 09/13/2017 9:12 AM The status of this report is Signed. Draft = Not yet reviewed or approved by Radiologist. Signed = Reviewed and approved by Radiologist. Past Records Previous Records: personally reviewed by dc [place] Drug Monitoring Program Search Results: patient reviewed within database, no issues identified Opioid Risk Assessment Risk assessment performed, no issues identified Assessment 1. Midthoracic back and chest wall pain with radicular component-suspect musculoskeletal etiology 2. Constipation Recommendations 1. We reviewed potential etiologies with the patient. CTA of chest failed to reveal PE, vascular or pulmonary etiology of her complaints. Physical exam findings suggest musculoskeletal etiology versus thoracic radicular component. X-rays were reviewed which revealed no evidence of thoracic vertebral compression fracture or rib fracture. Will request thoracic spine MRI at this time with further recommendations pending results. 2. Will discontinue tramadol and initiate a trial of Nucynta 50 mg every 4 hours as needed for breakthrough pain 3. Patient will continue to work with GI regarding her constipation and early satiety/nausea 4. Consider addition of Medrol Dosepak which will be left to the discretion of hospitalist service-this was discussed with family and consumer science professor 5. Continue with Lidoderm patch without change
--- NOTE | 2017-09-22 09:58 | DIAGNOSTIC IMAGING REPORT ---
KUB CLINICAL HISTORY: 77 years-old Female presenting with eval constipation. TECHNIQUE: Single supine view of the abdomen was obtained. COMPARISON: None. FINDINGS: Gaseous distention of large bowel with mild stool burden throughout the colon. Moderate stool burden in the rectum. The bladder is mildly distended. No gross pneumoperitoneum allowing for supine technique. No evidence of bowel obstruction. Bilateral nephrolithiasis suspected. Calcifications in the pelvis nonspecific and possibly phleboliths. Degenerative changes of the spine. IMPRESSION: 1. Mild stool burden throughout the colon with moderate stool burden in the rectum. No bowel obstruction or gross free air. 2. Suspected bilateral nephrolithiasis. Electronically signed by: Jamey Brown M.D. 09/22/2017 9:57 AM Dictated Date/Time: 09/22/2017 9:56 AM
[2017-09-22] MEDS: TAPENTADOL HCL 50 MG TAB PO PRN ×4 (11:01→20:03)
--- NOTE | 2017-09-22 11:44 | Family Medicine Progress Note ---
Progress Note Date of Service Sep 22, 2017. Subjective Pt evaluation today including: conversation w/ patient, physical exam, chart review, lab review, review of inpatient medication list Pain: Continued back pain reported PO Intake: Poor appetite Voiding: no voiding problems Ms. Gomez expresses frustration at her ongoing back pain. She notes that her abdomen is more distended and uncomfortable today, and that she has not yet had a BM. She struggles to sleep at night due to the pain and is uncomfortable throughout the day, although improved slightly with the tramadol. Constitutional: No fever, No chills Respiratory: No shortness of breath Cardiovascular: No chest pain Abdomen: + pain, + constipation, No nausea, No vomiting Musculoskeletal: + problem reported (back pain) All Other Systems: Reviewed and Negative Medications Current Inpatient Medications Medications (Trade) Dose Ordered Sig/Rosa Route Start Time Stop Time Status Last Admin Dose Admin Ioversol (Optiray 320) 100 ml UD PRN IV 09/18/17 17:30 09/22/17 17:29 Sodium Chloride 1,000 ml @ 100 mls/hr Q10H IV 09/18/17 23:59 10/18/17 23:58 09/22/17 07:44 100 MLS/HR Acetaminophen (Tylenol Tab) 650 mg Q4H PRN PO 09/18/17 21:45 10/18/17 21:44 09/21/17 15:10 650 MG Ondansetron HCl (Zofran Inj) 4 mg Q6H PRN IV 09/18/17 21:45 10/18/17 21:44 09/19/17 21:41 4 MG Ketorolac Tromethamine (Toradol Inj) 15 mg Q6H PRN IV 09/18/17 21:45 09/23/17 21:44 09/22/17 04:35 15 MG Lidocaine (Lidoderm Patch 5%) 1 patch QAM TD 09/19/17 09:00 10/19/17 08:59 09/21/17 07:59 1 PATCH Miscellaneous (Remove Lidoderm Patch) 1 ea DAILY@21 N/A 09/19/17 21:00 10/19/17 20:59 09/21/17 20:31 1 EA Hydralazine HCl (HydrALAZINE INJ) 10 mg Q6H PRN IV. 09/19/17 06:15 9/12/18 06:14 09/22/17 05:27 10 MG Docusate Sodium (coLACE CAP) 100 mg BID PO 09/19/17 21:00 10/19/17 20:59 09/22/17 07:47 100 MG Enoxaparin Sodium (Lovenox Inj) 40 mg QPM SQ 09/19/17 21:00 10/20/17 08:59 Future hold 09/21/17 20:41 40 MG Magnesium Hydroxide (Milk Of Magnesia Susp) 30 ml Q6H PRN PO 09/19/17 21:30 10/19/17 21:29 09/22/17 07:46 30 ML Valsartan (Diovan Tab) 160 mg QAM PO 09/21/17 09:00 10/21/17 08:59 09/22/17 07:47 160 MG Polyethylene (Miralax Powder Packet) 17 gm DAILY PO 09/21/17 09:00 10/21/17 08:59 09/21/17 14:19 17 GM Metoprolol Tartrate (Lopressor Tab) 12.5 mg BID PO 09/21/17 21:00 10/21/17 20:59 09/22/17 07:49 12.5 MG Tapentadol (Nucynta Tab) 50 mg Q4H PRN PO 09/22/17 08:15 10/22/17 08:14 09/22/17 11:01 50 MG Objective Vital Signs Date Time Temp Pulse Resp B/P (MAP) Pulse Ox O2 Delivery O2 Flow Rate FiO2 09/22/17 08:00 Room Air 09/22/17 07:12 36.5 100 24 148/75 (99) 97 Room Air 09/22/17 06:33 98 150/72 (98) 97 Room Air 09/22/17 05:15 80 182/90 (120) 09/22/17 04:45 Room Air 09/22/17 00:00 Room Air 09/21/17 23:24 37.1 83 20 144/92 (109) 99 Room Air 09/21/17 19:32 36.8 82 18 172/99 (123) 96 Room Air 09/21/17 15:32 98 Room Air 09/21/17 15:20 91 168/98 (121) 98 Room Air 09/21/17 14:35 36.7 86 18 182/101 (128) 94 Room Air 178/108 (131) 09/21/17 13:27 150/93 (112) Physical Exam General Appearance: WD/WN, no apparent distress Respiratory/Chest: lungs clear, normal breath sounds, no respiratory distress, no accessory muscle use Cardiovascular: regular rate, rhythm, no edema Abdomen: non tender (uncomfortable to palpate), + distended Extremities: no pedal edema, no calf tenderness Laboratory Results Last 24 Hours Test 09/22/17 06:08 Sodium Level 126 mmol/L Potassium Level 3.3 mmol/L Chloride Level 96 mmol/L Carbon Dioxide Level 19 mmol/L Anion Gap 11.0 mmol/L Blood Urea Nitrogen 12 mg/dl Creatinine 0.64 mg/dl Est Creatinine Clear Calc Drug Dose 65.6 ml/min Estimated GFR () 101.2 Estimated GFR (Non- 87.3 BUN/Creatinine Ratio 18.5 Random Glucose 101 mg/dl Calcium Level 9.0 mg/dl Assessment and Plan Ms. Gomez is a 77-year-old female with past medical history of hypertension that presents with a two-week history of worsening back pain. Patient subsequently found to have hyponatremia with a sodium of 121 along with uncontrolled back pain. Additional incidental finding of liver mass on imaging. Hyponatremia - Sodium level slow to improve, at 126 today - likely due to poor PO intake - Holding home HCTZ until sodium improves - continue IV NSS @ 100 mls/hr - Follow BMP Back Pain - thoracic x-ray and rib series was negative for compression fracture, subluxation, rib fracture - x-ray did note degenerative changes in her thoracic spine as well as vacuum discs which could be contributing to her pain - Lidocaine Patch and IV toradol ordered - pain management consulted, thank you for recommendations - switch tramadol to tapentadol 50mg q4h prn - obtain thoracic MRI - may benefit from steroids -> medrol dosepack - GI consulted, thank you for recs -> EGD WNL -> unable to undergo gastric emptying study given pt had pain medications after midnight -> will schedule gastric emptying study as outpatient - PT/OT -> pt safe to return home but may benefit from outpatient PT - CTA Chest show no acute cardiopulmonary findings Constipation - colace 100mg BID, miralax and milk of mag - abdomen significantly more distended today -> KUB showed mild stool burden throughout colon and moderate stool burden in rectum - likely worsening her overall pain -> treat w/tap water enema Liver Mass - MRI abdomen revealed a benign hemangioma -> discussed w/patient Hypertension - Holding home HCTZ - continue home dose valsartan - continue 12.5mg of metoprolol tartrate BID - expect elevated BP to improve as she has improved pain control - 10mg hydralazine q6h prn in case of elevations beyond 180 systolic Hypokalemia - potassium 3.3 today - treated with 40 mEq of oral potassium chloride - recheck tomorrow DVT - SCDs, lovenox 40mg SQ QPM Code Status - Full Resuscitation Disposition - pending improvement in sodium levels as well as improved pain management Resident Physician Supervision Note: I was present with the resident physician during the history and exam. I discussed the case with the resident and agree with the findings and plan as documented in the note. She continues to describe back pain which radiates to the epigastric area, combined with food aversion and early satiety. Plan for today 1) MRI of thoracic spine as ordered by pain management 2) continue IV fluids for treatment of hyponatremia 3) supplement potassium given her mild hypokalemia 4) KUB to assess fecal burden; enema or initiate bowel regimen as indicated 5) consider gastric emptying study as outpatient; unfortunately was canceled this morning due to the patient receiving pain medications overnight. Overall, her pain (location and pattern) not entirely consistent with gastroparesis, so I think it is reasonable to pursue this as an outpatient. 6) discussed with gastroenterology this afternoon. Documented By: Thomas Acosta Resident Tracking Resident Involvement: Resident Care Provided Care Provided: [facility]
--- NOTE | 2017-09-22 13:27 | DIAGNOSTIC IMAGING REPORT ---
THORACIC SPINE WITHOUT HISTORY: Dyspnea Thoracic radicular pain TECHNIQUE: Multiplanar multisequence MRI of the thoracic spine was performed without the use of contrast. COMPARISON: None. FINDINGS: Degenerative intervertebral disc change throughout the entire thoracic region. Mild thoracic scoliosis. No evidence for compression deformity. Signal characteristics of the thoracic cord are unremarkable. No evidence for disc herniation or significant spinal or foraminal stenosis. IMPRESSION: Moderate degenerative disc change throughout the entire thoracic region. Mild scoliosis. No acute process. The above report was generated using voice recognition software. It may contain grammatical, syntax or spelling errors. Electronically signed by: He Leigh M.D. 09/22/2017 1:25 PM Dictated Date/Time: 09/22/2017 1:24 PM
[2017-09-22] MEDS ORDERED: TAP WATER ENEMA PR ONE (13:30)
[2017-09-22 15:10] VITALS: BP 146/83; PULSE 81; TEMP 36.9; O2SAT 99
[2017-09-22] MEDS ORDERED: BISACODYL 10 MG SUPP PR STA (15:42)
[2017-09-22 16:00] VITALS: O2SAT 99
--- NOTE | 2017-09-22 19:19 | GASTROENTEROLOGY PROGRESS NOTE ---
DATE: 09/22/2017 SUBJECTIVE: Chart reviewed. Patient examined. Patient is sitting comfortably in the chair with a visitor. I spoke with the patient regarding her recent onset of symptoms. According to the patient, she can precisely identify that approximately 2-1/2 weeks ago, a couple of days following the use of a push lawnmower, which was difficult to start, she developed pain that started in her right scapula, wrapped around the back posteriorly and across to the front in the epigastric region. Since that time, she reports a 10 pound weight loss and an inability to take nearly any volume of food of any type without losing its appeal. There is no hematemesis, coffee-ground emesis, nausea, or vomiting. Although she does use Naprosyn at home for arthritis and did use some of this recently for her back discomfort, endoscopy failed to reveal any mucosal abnormalities. The patient was scheduled for a gastric emptying scan today; however, the concerns of narcotic use while in the hospital may influence the emptying, and therefore, she reports it is scheduled as an outpatient for next Tuesday. There is no clear fatty food intolerance to suggest gallbladder dysfunction, and her abdominal MRI reveals a normal appearing gallbladder, extrahepatic and intrahepatic biliary system. The pancreas is also unremarkable. There are no abnormal lymph nodes. The 3.6 cm lesion in the left hepatic lobe is consistent with benign hemangioma. There is also a 9 mm cyst in the right lobe. MEDICATIONS: Her medications were reviewed and include Nucynta, metoprolol, valsartan, Colace, Lovenox, lidocaine, hydralazine. REVIEW OF SYSTEMS: Otherwise noncontributory based on 13-point exam except for mentioned above. PHYSICAL EXAMINATION: VITAL SIGNS: Blood pressure 146/83, respirations 20, heart rate 81, afebrile at 36.9, and 99% on room air. GENERAL: Patient is awake, alert, and oriented x3. HEENT: Sclerae are anicteric. Conjunctivae are moist. Oral mucosa moist. HEART: Normal S1 and S2. LUNGS: Clear to auscultation without rales, rhonchi, or wheezes. GASTROINTESTINAL: The abdomen is soft, flat, nontender, nondistended, with good bowel sounds. There is a sense of protuberance to the abdomen that the patient reports is generally larger than usual. This is minimally tympanitic on palpation. There are positive bowel sounds noted. EXTREMITIES: Without edema. LABORATORY DATA: I reviewed the patient's laboratory studies. As of yesterday, hemoglobin 14.3, platelets 274. Potassium is slightly low at 3.3 today, BUN and creatinine are 12 and 0.64. LFTs are normal. ASSESSMENT AND PLAN: Source of patient's acute onset of anorexia and food avoidance is unclear. There is no nausea although perhaps a central lesion needs to be excluded. The patient also does not report a chronic pattern that would suggest mesenteric ischemia or possibly ischemic gastroparesis, but at some point, if these symptoms persist and there are no other findings that suggest a cause, Doppler studies would be a reasonable initial evaluation. The patient is scheduled for gastric emptying scan next week. In the meantime, patient should be encouraged to take small meals frequently as best tolerated. There is a sense that she has been constipated for a couple of weeks, and she feels this perhaps is contributing to her sense of lack of appetite or fullness with even small morsels, drinks, or beverages. KUB today suggests mild stool burden throughout the colon, with a moderate stool burden in the rectum. This perhaps is contributing to some of the patient's symptoms. Therefore, would continue with enema products from below, either Fleets enema or Dulcolax suppositories to see if this can promote emptying of the rectum. If this is effective, then oral products may be reasonable such as MiraLax chronically. Dr. Montano is following tomorrow on the service. All questions answered for the patient. CARLIE
[2017-09-22] MEDS: ENOXAPARIN 40 MG/0.4 ML SYR SQ SCH (20:04)
[2017-09-22 22:55] VITALS: BP 177/99; PULSE 83; TEMP 36.5; O2SAT 99
[2017-09-23] MEDS: TAPENTADOL HCL 50 MG TAB PO PRN ×2 (01:51→07:05)
[2017-09-23] MEDS: SODIUM CHLORIDE 0.9% 1000ML 1,000 ML IV SCH (04:48)
[2017-09-23 06:24] LABS: CALCIUM 8.2 mg/dl (8.5-10.1); CREATININE 0.6 mg/dl (0.60-1.20); POTASSIUM 3.2 mmol/L (3.5-5.1)
[2017-09-23 06:36] VITALS: BP 159/94; PULSE 89; TEMP 37; O2SAT 97
[2017-09-23] MEDS ORDERED: POTASSIUM CHLORIDE 20 MEQ TABCR PO ONE (07:15)
--- NOTE | 2017-09-23 07:20 | Discharge Instructions ---
Discharge Instructions Date of Service Sep 23, 2017. Admission Reason for Admission: Hyponatremia Discharge Discharge Diagnosis / Problem: Low sodium levels and intractable back pain Discharge Goals Goal(s): Decrease discomfort, Improve function, Increase independence Activity Recommendations Activity Limitations: resume your previous activity . Instructions / Follow-Up Instructions / Follow-Up You were admitted to [facility] due to: 1) Back pain - your thoracic spine x-ray and MRI did not show any evidence of fractures, or herniated disk. You do have degenerative changes throughout your thoracic spine though. Given the fact that you had been experiencing weight loss and poor appetite, you were also seen by our GI doctor, who did an EGD ( scope to look at your esophagus and stomach). He did not find anything concerning, but did take a few biopsies. You were meant to have a gastric emptying study, which was not able to be done while you were in the hospital. We will be arranging this for you as an outpatient. You were also seen by our pain management team, who started you on a medication regimen to help with your pain. Our physical therapists who worked with you recommended that you continue seeing outpatient physical therapy, which may improve your pain. 2) Low sodium levels - likely due to poor appetite. Treated with IV fluids, and improved on discharge. 3) Constipation -> treated with stool softeners, enemas and suppositories. We recommend you continue the stool softeners on discharge until your bowel movements start to return to normal. Please take small meals frequently as best tolerated. You have a follow up appointment at the [facility] on Tuesday , September 26 at 9:30AM with Dr. Ramos. We will be in touch regarding the appointment for your gastric emptying study. Please seek medical attention if your pain worsens. Current Hospital Diet Patient's current hospital diet: Low Fiber Diet Discharge Diet Recommended Diet: Regular Diet Procedures Procedures Performed: Esophagogastroduodenoscopy W/Biopsies Pending Studies Studies pending at discharge: yes List of pending studies: Biopsy Results from [facility] . Who to Call and When: Medical Emergencies: If at any time you feel your situation is an emergency, please call 911 immediately. . Non-Emergent Contact Non-Emergency issues call your: Primary Care Provider . . "Provider Documentation" section prepared by Jaswant Byrne. .
[2017-09-23] MEDS: METOPROLOL TARTRATE 25 MG TAB PO SCH (07:52)
[2017-09-23] MEDS: VALSARTAN 80 MG TAB PO SCH (07:52)
[2017-09-23] MEDS: DOCUSATE SODIUM 100 MG CAP PO SCH (07:52)
[2017-09-23] MEDS: POLYETHYLENE (MIRALAX) 17 GM PACK PO SCH (07:52)
[2017-09-23] MEDS ORDERED: NURSING VERBAL MED ORDER ONE (08:00)
[2017-09-23] MEDS ORDERED: NCY50 PO (09:59)
[2017-09-23] MEDS ORDERED: VALS-59 PO (09:59)
[2017-09-23] MEDS ORDERED: CLC100 PO (09:59)
[2017-09-23 10:27] VITALS: BP 159/94; PULSE 89; TEMP 37; O2SAT 97
--- NOTE | 2017-09-23 12:24 | Discharge Summary ---
Discharge Summary Date of Service Sep 23, 2017. Discharge Summary Admission Date: Sep 18, 2017 at 21:43 Discharge Date: Sep 23, 2017 Discharge Disposition: Home Principal Diagnosis: Hyponatremia, unrelenting back pain & constipation Problems/Secondary Diagnoses: 1) HTN Immunizations: Have You Had Influenza Vaccine: Unknown History of Tetanus Vaccine?: Unknown History of Pneumococcal: Unknown History of Hepatitis B Vaccine: Unknown Procedures: CTA IMPRESSION: 1. No pulmonary emboli identified. 2. No acute intrathoracic findings. 3. Probable 4.1 cm hypodense lateral segment hepatic mass which is suboptimally assessed on this exam. Nonemergent liver protocol CT of the abdomen and pelvis is recommended. Abdominal MRI IMPRESSION: 1. The 3.6 cm lesion in the left hepatic lobe is consistent with a benign hemangioma. 2. An additional 9 mm cyst is noted in the right lobe. 3. Unremarkable MRCP. No gallstones are identified. Thoracic Spine X-ray IMPRESSION: Degenerative change. No acute process. Thoracic Spine MRI IMPRESSION: Moderate degenerative disc change throughout the entire thoracic region. Mild scoliosis. No acute process. KUB IMPRESSION: 1. Mild stool burden throughout the colon with moderate stool burden in the rectum. No bowel obstruction or gross free air. 2. Suspected bilateral nephrolithiasis. Consultations: GI, pain management Medication Reconciliation New Medications: Valsartan (Valsartan) 320 Mg Tab 1 TAB PO DAILY for 30 Days, #30 TABS 3 Refills Docusate Sodium (Docusate Sodium) 100 Mg Cap 100 MG PO BID for 30 Days, #60 CAP Tapentadol HCl (Nucynta) 50 Mg Tab 50 MG PO Q4H PRN for Pain for 7 Days, #28 TAB Continued Medications: Naproxen (Aleve) 220 Mg Tab 220 MG PO BID PRN for Pain, TAB Discontinued Medications: Valsartan/Hctz (Diovan Hct 160MG/25MG) 1 Tab Tab 1 TAB PO DAILY, TAB Discharge Exam Ms. Gomez reports her pain is improved with her current analgesic regimen. She notes that she feels slightly better after her bowel movements, and is quite eager to be discharged. She reports she had two BMs, which improved her abdominal distention. She reports her appetite is slightly improved but still overall poor. She denies chest pain, nausea or vomiting. Review of Systems: Constitutional: No fever, No chills Respiratory: No shortness of breath Cardiovascular: No chest pain Abdomen: No pain, No nausea, No vomiting, No diarrhea, No constipation Musculoskeletal: + problem reported (upper back pain) Physical Exam: General Appearance: WD/WN, no apparent distress Respiratory/Chest: lungs clear, normal breath sounds, no respiratory distress, no accessory muscle use Cardiovascular: regular rate, rhythm, no edema, no murmur, normal peripheral pulses Abdomen / GI: non tender, + distended (improved from yesterday) Extremities: no calf tenderness, no pedal edema Hospital Course Ms. Gomez is a 77-year-old female with past medical history of hypertension that presents with a two-week history of worsening back pain, early satiety, poor appetite and a 12 pound weight loss. Patient subsequently found to have hyponatremia with a sodium of 121 along with her uncontrolled back pain. Additional incidental finding of liver mass on imaging. Hyponatremia - Sodium level improved to 131 on discharge - likely due to poor PO intake given patient had had a poor appetite x3 weeks - Holding home HCTZ - treated with IV NSS @ 100 mls/hr - Recommend recheck of BMP on Tuesday Back Pain - thoracic x-ray and rib series was negative for compression fracture, subluxation, rib fracture - x-ray did note degenerative changes in her thoracic spine as well as vacuum discs which could be contributing to her pain - MRI without evidence of disc herniation - treated with Lidocaine Patch and IV toradol - pain management consulted - started on tapentadol 50mg q4h prn -> will discharge on 7 days of this medication until pain improves - recommended medrol dosepack however we did not start this given no evidence of neuropathic cause of pain on imaging plus GI complaints as well - GI consulted given concern for malignancy with early satiety, poor appetite, back pain and weight loss -> EGD WNL -> unable to undergo gastric emptying study while in hospital -> deferred to PCP to schedule gastric emptying study as outpatient - PT/OT consulted -> pt safe to return home but may benefit from outpatient PT - CTA Chest show no acute cardiopulmonary findings Constipation - treated with colace 100mg BID, miralax and milk of mag - KUB showed mild stool burden throughout colon and moderate stool burden in rectum - pt did have 2 BMs prior to discharge, recommend continuing colace on d/c Liver Mass - MRI abdomen revealed a benign hemangioma -> discussed w/patient Hypertension - Hold home HCTZ given hyponatremia - increasing home valsartan dose to 320mg daily - recheck BP in outpatient setting - expect elevated BP to improve as she has improved pain control Hypokalemia - potassium 3.2 today - treated with 40 mEq of oral potassium chloride - recheck w/BMP on Tuesday Total Time Spent: Greater than 30 minutes This includes examination of the patient, discharge planning, medication reconciliation, and communication with other providers. Discharge Instructions Please refer to the electronic Patient Visit Report (Discharge Instructions) for additional information. Additional Copies To Josh Pollard MD; Lakisha Ramos M.D. Resident Tracking Resident Involvement: Resident Care Provided Care Provided: [facility] Medicine Assessment/Plan Resident Physician Supervision Note: I was present with Dr. Byrne during the history and exam. I discussed the case with the resident and agree with the findings and plan as documented in the note. Any exceptions or clarifications are listed here: Pt seen and examined at bedside. Pt feels that pain is well controlled on present regimen and is resting comfortably. On examination, S1/S2 nl RRR, CTAB. Abd NT/ND BS +ve. Hyponatremia - gradually improving - recheck at follow up. Encourage dietary support and appropriate hydration Acute on chronic lower back pain - Continue lidocaine patch and would continue Nucynta as recommended by pain mgmt until follow up with PCP at least. Would definitely recommend PT as well. Constipation - encouraged continued use of colace and miralax as outpatient on PRN basis to ensure regularity HTN - HCTZ held 2/2 hyponatremia, increased valsartan component. Close follow up outpatient.
[2017-09-23] MEDS ORDERED: LIDODERM (LIDOCAINE) PATCH 5% TD SCH (21:00)
== END 2017-09-23 10:51 | disposition home or self-care (01) | DRG 641 ==
LOC: C.EDB 16:57 → C.MED 21:43 → ENRESERV 22:02
PROVIDERS: ADMIT Student in an Organized Health Care Education/Training Program; ATTEND Family Medicine
PROC: 0DB68ZX Excision of Stomach, Via Natural or Artificial Opening Endoscopic, Diagnostic (ICD-10-PCS; principal; 2017-09-21 10:30)
DX: E87.1 Hypo-osmolality and hyponatremia (principal); R07.89 Other chest pain; I10 Essential (primary) hypertension; K59.00 Constipation, unspecified; R63.4 Abnormal weight loss; R16.0 Hepatomegaly, not elsewhere classified; Z79.899 Other long term (current) drug therapy

== ENCOUNTER → 2017-09-28 | Outpatient (CLI) | payer BC ==
[~2017-09-28] MED LIST changes: +CLC100 PO; -DVN160125 PO; -NAPR-201 PO; +NAPR1TAB9 PO; +NCY50 PO; +OPTIRAY 320 IV PRN; +VALS-59 PO
--- NOTE | 2017-09-28 15:18 | DIAGNOSTIC IMAGING REPORT ---
CT OF THE ABDOMEN AND PELVIS WITH CONTRAST CLINICAL HISTORY: Weight loss. Generalized weakness. Abdominal and back pain. COMPARISON STUDY: MRI of the abdomen September 19, 2017 and KUB September 22, 2017. TECHNIQUE: Following IV administration of 92 mL of Optiray-320, axial images of the abdomen and pelvis were obtained from the lung bases to the proximal femurs. Images were reviewed in the axial, sagittal, and coronal planes. IV contrast was administered without complication. A dose lowering technique was utilized adhering to the principles of ALARA. Oral contrast was administered. CT DOSE: 484.40 mGycm FINDINGS: The heart is moderately enlarged. A 1 cm right hepatic dome cyst is noted. A 4 cm lateral segment hepatic hemangioma is noted. There is no biliary or pancreatic ductal dilatation. The spleen, adrenal glands, kidneys and pancreas are unremarkable. There is no pneumatosis, free air or portal venous gas. Bladder is distended. Sensitivity for detection of mucosal lesions is diminished given CT technique but no bowel mucosal lesion is identified. There is no lymphadenopathy or ascites. There is no evidence for a bowel obstruction. No suspicious osseous lesion is noted within the visualized skeletal structures. A splenule is incidentally noted. There is a moderate amount of stool within the colon. The appendix is normal. Cecum was within the right upper quadrant. Ovaries are not enlarged. IMPRESSION: 1. No acute process within the abdomen or pelvis. 2. No evidence for malignancy within the abdomen and pelvis by CT. Decreased sensitivity for detection of bowel mucosal lesions given CT technique but none identified. 3. No evidence for a bowel obstruction. Moderate amount of stool within the colon. 4. Moderate bladder distention. Electronically signed by: Aaron Olsen M.D. 09/28/2017 3:16 PM Dictated Date/Time: 09/28/2017 3:09 PM
== END | disposition home or self-care (01) ==
LOC: C.CTS 08:14
PROVIDERS: ATTEND Student in an Organized Health Care Education/Training Program
DX: N32.89 Other specified disorders of bladder (principal); R53.1 Weakness; R53.0 Neoplastic (malignant) related fatigue; R63.4 Abnormal weight loss

== ENCOUNTER → 2017-09-28 | Outpatient (CLI) | payer BC ==
[~2017-09-28] MED LIST changes: -OPTIRAY 320 IV PRN
--- NOTE | 2017-09-28 14:01 | DIAGNOSTIC IMAGING REPORT ---
GASTRIC EMPTYING CLINICAL HISTORY: 77 years-old Female with CONSTIPATION. TECHNIQUE: After the oral ingestion of the meal consisting of egg substitute labeled with 1.0 mCi technetium-99m sulfur colloid and eggs sequential anterior and posterior images were obtained through 4 hours. Residual gastric activity was measured at several time points. COMPARISON: None available FINDINGS: There is normal emptying of the gastric contents into the intestine. The gastric retention of activity was calculated as follows: 1 HOUR: 87% (normal range = 30-90%). 2 HOURS: 24% (normal range = 0-60%). 4 HOURS: 4% (normal range = 0-10%). IMPRESSION: Normal gastric emptying study. The above report was generated using voice recognition software. It may contain grammatical, syntax or spelling errors. Electronically signed by: Dave Monge M.D. 09/28/2017 2:00 PM Dictated Date/Time: 09/28/2017 1:56 PM
== END | disposition home or self-care (01) ==
LOC: C.NUCL 08:09
PROVIDERS: ATTEND Student in an Organized Health Care Education/Training Program
DX: K59.00 Constipation, unspecified (principal)